=== PATIENT | female | born 1965 | race Caucasian/White ===

== ENCOUNTER → 2020-09-03 11:08 | Outpatient (BNVA) | payer OTHER, SELFPAY | PROVIDERS: PCP Physician Assistant Medical; Referring Provider Physician Assistant Medical; Visit Provider Surgery | DX: Z76.89 Persons encountering health services in other specified circumstances (principal) ==

== ENCOUNTER 2020-09-10 08:27 | Outpatient (REF) | payer OTHER, SELFPAY ==
[2020-09-11 14:42] LABS: H Pylori Breath Test NOT DETECTED (NOT DETECTED)
== END 2020-09-10 08:28 | disposition home or self-care (01) ==
LOC: HO.LNP 08:27
PROVIDERS: PCP Physician Assistant Medical; Referring Provider Physician Assistant Medical; Visit Provider Physician Assistant
DX: Z01.818 Encounter for other preprocedural examination (principal)
CPT/HCPCS: 83013

== ENCOUNTER → 2020-09-11 12:01 | Outpatient (BNVA) | payer OTHER, SELFPAY | PROVIDERS: PCP Physician Assistant Medical; Referring Provider Physician Assistant Medical; Visit Provider Dietitian, Registered | DX: Z76.89 Persons encountering health services in other specified circumstances (principal) ==

== ENCOUNTER → 2020-09-18 08:12 | Outpatient (BNVA) | payer OTHER, SELFPAY | PROVIDERS: PCP Physician Assistant Medical; Visit Provider Surgery | DX: Z76.89 Persons encountering health services in other specified circumstances (principal) ==

== ENCOUNTER 2020-09-19 08:00 | Outpatient (REF) | payer OTHER, SELFPAY ==
--- NOTE | 2020-09-19 08:09 | US_ITS ---
EXAMINATION: US COMPLETE ABDOMEN WITH LIVER ELASTOGRAPHY CLINICAL INFORMATION: Morbid obesity. COMPARISON: None. TECHNIQUE: Real-time imaging of the abdominal viscera. Noninvasive ultrasound liver fibrosis assessment is performed using Ana ElastPQ point quantification shear wave elastography (pSWE) with a 5 MHz transducer. Multiple elastography samples are obtained. FINDINGS: PANCREAS: Normal. The visualized pancreatic head and body are normal in appearance. The remainder of the pancreas is obscured from visualization by the overlying bowel gas. ABDOMINAL AORTA: The proximal, middle, and distal aortic segments are normal in caliber. INFERIOR VENA CAVA: Visualized portions are normal. LIVER: The liver echotexture is coarse and the liver is echogenic. The right lobe measures 21 cm in length. The left lobe measures 14 cm in length. The portal vein demonstrates appropriate, hepatopedal flow. Shear wave elastography provides a median stiffness of 1.26 m/s (reference: normal median stiffness is 0.81 - 1.22 m/s). The IQR/median stiffness to assess sampling precision is 0.23 (reference: optimal IQR/median stiffness is under 0.3). GALLBLADDER: Surgically absent. COMMON BILE DUCT: Normal in caliber measuring 0.7 cm in diameter. RIGHT KIDNEY: Normal. No hydronephrosis. No renal calculi or focal parenchymal lesions. The kidney measures 12.4 cm in maximum dimension. LEFT KIDNEY: Normal. No hydronephrosis. No renal calculi or focal parenchymal lesions. The kidney measures 12.8 cm in maximum dimension. SPLEEN: Normal. The spleen measures 9.1 cm in maximum dimension. FREE FLUID: None. US/US abdomen comp w elastography IMPRESSION: 1. Enlarged, echogenic liver consistent with hepatic steatosis. 2. Elastography: 1.26 m/s (normal to mild)
--- NOTE | 2020-09-19 09:07 | XR_ITS ---
EXAMINATION: XR CHEST CLINICAL INFORMATION: Morbid obesity. COMPARISON: None TECHNIQUE: 2 views of the chest were obtained. FINDINGS: The cardiomediastinal and hilar contours are within normal limits. The lungs are clear without focal consolidation, pleural effusion or pneumothorax. XR/XR chest 2V IMPRESSION: No acute process identified.
--- NOTE | 2020-09-19 09:07 | FL_ITS ---
EXAMINATION: XR GI SERIES CLINICAL INFORMATION: Morbid obesity due to excess calories COMPARISON: None TECHNIQUE: Fluoroscopic assessment of the upper GI tract was performed in various upright and supine/prone obliquities utilizing thin and thick high density barium contrast material and effervescent granules. FINDINGS: The esophagus was normal in course, caliber, and contour. There was normal distensibility with no fixed segment of narrowing. No focal mucosal abnormality was identified. Mild esophageal dysmotility was observed. Contrast passed freely across the gastroesophageal junction into the stomach. No significant hiatal hernia. There was normal distensibility of the stomach with no focal abnormality identified. There was prompt gastric emptying into the duodenum which demonstrated a normal appearance. No gastroesophageal reflux was observed. FLUOROSCOPY TIME: 1.9 minutes DOSE AREA PRODUCT: 34.515 Gy-cm2 (rdz-centimeter squared) FL/FL upper GI series IMPRESSION: Mild esophageal dysmotility noted. Otherwise unremarkable upper GI examination.
== END 2020-09-19 08:01 | disposition home or self-care (01) ==
LOC: HO.US 08:00
PROVIDERS: Visit Provider Surgery
DX: Z01.818 Encounter for other preprocedural examination (principal); E66.01 Morbid (severe) obesity due to excess calories; K21.9 Gastro-esophageal reflux disease without esophagitis
CPT/HCPCS: 71046; 74240; 76705; 76981

== ENCOUNTER → 2020-10-11 08:10 | Outpatient (BNVA) | payer OTHER, SELFPAY | PROVIDERS: PCP Physician Assistant Medical; Referring Provider Physician Assistant Medical; Visit Provider Surgery | DX: Z76.89 Persons encountering health services in other specified circumstances (principal) ==

== ENCOUNTER → 2020-10-15 11:19 | Outpatient (REF) | payer OTHER, SELFPAY ==
--- NOTE | 2020-10-15 11:30 | CA_ITS ---
Transthoracic Echocardiogram Patient (Last, First, Middle): Alyssa Carrizales, Gender: Female Date of : 1965 Age: 54 Procedure Date: 10/15/2020 Procedure Type: Transthoracic Echocardiogram Location: OP Height: 160.02 cm Weight: 97.98 kg BSA: 2.00 m2 Heart Rate: bpm BP: 142 / 76 mmHg Power Distribution Engineer: VANESSA Referring MD: Ernie Fonseca MD Symptoms: I10 HTN PREOP CV EXAM Z01.818 Study Quality: Good ECG Rhythm: Sinus Conclusions: - The left ventricular systolic function is normal. The visually estimated ejection fraction is between 60-65%. - There is an interatrial septal aneurysm seen bowing to the right. Interatrial shunt cannot be excluded. - No obvious valvular pathology seen on this study. - Recommend contrast study (bubble study) to evaluate intracardiac shunting. Findings Left Ventricle Normal left ventricular cavity size. There is normal left ventricular wall thickness. The left ventricular systolic function is normal. The visually estimated ejection fraction is between 60-65%. There is no evidence of regional wall motion abnormalities. Diastolic function is normal for age. Right Ventricle Normal right ventricular cavity size and systolic function. Atria The left atrium is normal in size. There is an interatrial septal aneurysm seen bowing to the right. Interatrial shunt cannot be excluded. The right atrium is normal in size. Aortic Valve There is a normal trileaflet aortic valve. There is no aortic valve stenosis. There is no aortic valve regurgitation. Mitral Valve The mitral valve appears normal. There is trace mitral valve regurgitation. There is no mitral valve stenosis. Pulmonic Valve The pulmonic valve was not well visualized. Tricuspid Valve Normal tricuspid valve structure. There is trace tricuspid valve regurgitation. The pulmonary artery systolic pressure is normal. Great Vessels The aortic annulus, sinuses of valsalva, and asc aorta are normal in size. Venous The inferior vena cava is normal in size and collapses greater than 50% with inspiration. Pericardium/Pleural There is no evidence of pericardial effusion. Prior Study Comparison No prior study available for comparison. Recommendations, Care & Conclusions No obvious valvular pathology seen on this study. Recommend contrast study to evaluate intracardiac shunting. Measurements 2D Linear Measurements IVSd: 0.97 0.6-0.9/0.6-1.0 cm LVIDd: 4.81 3.9-5.3/4.2-5.9 cm LVIDd Index: 2.41 2.4-3.2/2.2-3.1 cm/m2 LVIDs: 3.00 2.0-3.6 cm LVPWd: 1.15 0.7-1.1 cm Ao Root: 2.80 2.1-3.5 cm LA Diam: 3.70 2.7-3.8/3.0-4.0 cm LAIDs Index: 1.85 1.5-2.3 cm/m2 LV Mass: 230.39 67-162/88-224 g LV Mass Index: 115.19 43-95/49-115 g/m2 LVOT Diam: 2.00 3.0+(-)1.3 cm 2D Systolic Function EF 4C: 63.50 >55% EF 2C: 69.70 >55% EF BiP: 66.40 >55% Mitral Valve MV Pk E: 0.90 MV PK A: 0.81 MV Decel Time: 198.00 E/A: 1.10 E'Lateral: 8.80 E'Medial: 6.67 E/E' Med: 13.40 E/E' Lat: 10.20 PHT: 58.00 MVA PHT: 3.79 Decel [place]: 4.53 Aortic Valve AoV Pk Nik: 1.49 AoV Pk Grad: 9.00 LVOT LVOT Pk Nik: 0.98 LVOT Mn Nik: 0.66 LVOT VTI: 0.22 LVOT Pk Grad: 4.00 LVOT Mn Grad: 2.00 LVOT Diam: 2.00 LVOT Area: 3.14 Diastolic Function MV Pk E: 0.90 MV Pk A: 0.81 E/A: 1.10 E'Medial: 6.67 E/E' Med: 13.40 E' Laterial: 8.80 E/E' Lat: 10.20 Tricuspid Valve TR Pk Nik: 2.29 TR Pk Grad: 21.00 RA Press: 3.00 RVSP: 24.00 Great Vessels Aorta Ao Root-2D: 2.80 2.0-3.7 cm Ao Asc: 3.40 2.1-3.4 cm Updated in Other Vendor System with Status of Final Kenneth Fierro MD electronically signed on 10/15/2020 4:37:55 PM with status of Final
== END ==
LOC: HO.CARD 11:19
PROVIDERS: Visit Provider Surgery
DX: Z01.818 Encounter for other preprocedural examination (principal); I10 Essential (primary) hypertension
CPT/HCPCS: 93306

== ENCOUNTER → 2020-10-17 09:29 | Outpatient (BNVA) | payer OTHER, SELFPAY | PROVIDERS: PCP Physician Assistant Medical; Visit Provider Dietitian, Registered | DX: Z76.89 Persons encountering health services in other specified circumstances (principal) ==

== ENCOUNTER → 2020-10-28 09:02 | Outpatient (BNVA) | payer OTHER, SELFPAY | PROVIDERS: PCP Physician Assistant Medical; Visit Provider Surgery | DX: Z76.89 Persons encountering health services in other specified circumstances (principal) ==

== ENCOUNTER → 2020-11-20 15:31 | Outpatient (BNVA) | payer OTHER, SELFPAY | PROVIDERS: PCP Physician Assistant Medical; Visit Provider Physician Assistant ==

== ENCOUNTER → 2020-11-22 08:14 | Outpatient (BNVA) | payer OTHER, SELFPAY | PROVIDERS: PCP Physician Assistant Medical; Visit Provider Surgery ==

== ENCOUNTER → 2020-12-20 08:22 | Outpatient (BNVA) | payer OTHER, SELFPAY | PROVIDERS: PCP Physician Assistant Medical; Visit Provider Surgery ==

== ENCOUNTER → 2021-01-08 08:39 | Outpatient (BNVA) | payer OTHER, SELFPAY | PROVIDERS: PCP Physician Assistant Medical; Visit Provider Surgery ==

== ENCOUNTER 2024-06-15 08:13 | Outpatient (REF) | payer OTHER, MEDICAID, SELFPAY ==
--- NOTE | ~2024-06-15 | XR_ITS ---
EXAMINATION: XR PELVIS CLINICAL INFORMATION: Pain in unspecified hip. COMPARISON: None available. TECHNIQUE: AP view of the pelvis. Limited visualization due to bowel gas and body habitus. FINDINGS: Dextroscoliosis of the imaged [id number] lumbar spine with degenerative changes. Mild degenerative changes in the bilateral hips. XR/XR pelvis 1-2V IMPRESSION: 1. Mild degenerative changes in the bilateral hips. 2. Dextroscoliosis of the imaged [id number] lumbar spine with degenerative changes. Electronically signed by: Radha Park MD 07/12/2024 10:38 AM EDT
--- NOTE | ~2024-06-15 | XR_ITS ---
EXAMINATION: XR KNEE, RIGHT XR KNEE AP STANDING CLINICAL INFORMATION: Right knee pain. COMPARISON: Portions of the CT right knee dated 07/20/2021. TECHNIQUE: Lateral and axial views of the right knee are submitted. AP bilateral standing view of the knees was obtained. FINDINGS: Prosthetic components of the bilateral total knee arthroplasties are appropriately aligned without periprosthetic fracture or abnormal lucency. No component migration. No joint effusion. XR/XR knee RT 3V IMPRESSION: Appropriate alignment of the bilateral total knee arthroplasties, without evidence of complications. Electronically signed by: Efrain Meyer MD 07/12/2024 07:49 PM EDT
== END 2024-06-15 08:14 | disposition home or self-care (01) ==
LOC: HO.HOSX 08:13
PROVIDERS: Visit Provider Orthopaedic Surgery
DX: M25.561 Pain in right knee (principal); M25.559 Pain in unspecified hip; Z96.653 Presence of artificial knee joint, bilateral
CPT/HCPCS: 72170; 73562

== ENCOUNTER 2024-06-15 10:40 | Outpatient (AMB) | payer OTHER, MEDICAID, SELFPAY ==
--- NOTE | 2024-06-15 11:16 | A.OFFVIS_ITS ---
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 Patient reports that she had a Right TKA done in [address] [facility] after surgery she explains that she had two aspirations to check for infection. No infections were found. She has had pain since the surgery, increased pain when climbing stairs, prolonged standing and walking as well as with gait initiation. In the first month of post operative period, she was working with PT when the therapist lifted and twisted her knee and caused the increase of pain. There was a CT scan done that was reviewed with her by a PA who let her know that she had a femur fracture but when she followed up with the MD she was told that it was just a shadow from her prosthesis [facility] Medical History (Updated 10/11/20 @ 12:33 by Ernie Fonseca MD) Knee pain Prediabetes Stress headaches Anxiety Depression Asthma Hypertension Sleep apnea with use of continuous positive airway pressure (CPAP) Morbid obesity Surgical History (Updated 06/15/24 @ 11:53 by Jamir Olguin MD) Obesity Hx of hysterectomy H/O bilateral breast reduction surgery Hx laparoscopic cholecystectomy S/P bilateral foot surgery Family History Father Lymphoma DM (diabetes mellitus) HTN (hypertension) Stroke Mother HTN (hypertension) DM (diabetes mellitus) Colon cancer Brother Heart attack Brother HTN (hypertension) Brother No problems noted. Brother No problems noted. Brother No problems noted. Sister No problems noted. Sister No problems noted. Daughter Obesity Daughter No problems noted. Social History Alcohol intake: never Cigarettes Per Day: 6 Physical Exam Extrem Other: Anterolateral tibial tenderness to palpation with trace effusion. Incision is clean dry and intact. 0-110 degrees of motion Results Reviewed Results Reviewed: Right TKA in expected post operative position with no hardware complications or evidence of loosening Assessment & Plan Assessment & Plan (1) S/P knee replacement: Code(s): Z96.659 - Presence of unspecified artificial knee joint Category: Surgical Plan: Alyssa is status post right knee replacement. There is some mild radiographic abnormalities over the anterolateral tibia. This does correspond to her tenderness. Her ESR and CRP are within normal limits and I think the risk of infection is extremely low. I ordered a bone scan to assess for activity around the tibial prosthesis. Orders: Orders XR knee RT 3V 06/15/24 M25.561 - Pain in right knee XR pelvis 1-2V 06/15/24 M25.559 - Pain in unspecified hip Erythrocyte Sedimentation Rate 06/15/24 Z96.659 - Presence of unspecified artificial knee joint C Reactive Protein 06/15/24 Z96.659 - Presence of unspecified artificial knee joint NM bone 3 phase Today Z96.659 - Presence of unspecified artificial knee joint Coding Level of Care Code New Pt Level 4 (06824) Diagnoses S/P knee replacement Z96.659
== END 2024-06-15 12:06 | disposition home or self-care (01) ==
PROVIDERS: PCP Physician Assistant Medical; Visit Provider Orthopaedic Surgery
DX: M25.461 Effusion, right knee (principal); Z96.651 Presence of right artificial knee joint
CPT/HCPCS: 99203

== ENCOUNTER 2024-06-15 12:31 | Outpatient (REF) | payer OTHER, MEDICAID, SELFPAY ==
[2024-06-15 14:03] LABS: Erythrocyte Sedimentation Rate 19 MM/HR (0-20)
== END 2024-06-15 12:32 | disposition home or self-care (01) ==
LOC: HO.10HDL 12:31
PROVIDERS: Visit Provider Orthopaedic Surgery
DX: Z96.659 Presence of unspecified artificial knee joint (principal)
CPT/HCPCS: 36415; 85652; 86140

== ENCOUNTER → 2024-08-02 09:37 | Outpatient (REF) | payer MEDICARE, MEDICAID, SELFPAY ==
--- NOTE | ~2024-08-02 | NM_ITS ---
EXAMINATION: THREE PHASE BONE SCAN CLINICAL INFORMATION: Presence of unspecified artificial knee joint.. COMPARISON: No previous bone scan is available for comparison. Radiographs of the pelvis and right knee dated 06/15/2024 are available for comparison.. TECHNIQUE: Initial rapid sequence images were obtained over the knees in the anterior and posterior projections during the bolus injection of 38 mCi Tc-99m MDP. Static images of the lower lumbar spine to the mid tibias in multiple projections were then obtained 3 hours post injection. FINDINGS: Initial rapid sequence images show bilaterally symmetrical flow to the knees with no foci of abnormally increased flow present at any site. The visualized vascular flow appears bilaterally symmetrical.. Blood pool images obtained immediately finding the flow study show no suspicious foci of abnormally increased blood pool activity at any site. Photopenic defects in bilateral total knee prostheses are noted. The delayed static images also show the photopenic defects from bilateral total knee prostheses. There is a very mild diffuse increase in activity adjacent to the right knee hardware. This is slightly more intense in the right patella, but still mild in intensity. There are no additional foci of more intensely increased activity. In the other visualized bones there is a focus of mildly increased activity in the right side of L5, posteriorly, probably due to facet arthropathy. NM/NM bone 3 phase IMPRESSION: Well-healed bilateral total knee prostheses are noted. The minimally more intense activity adjacent to the right-sided hardware is probably due to its more recent placement. There are no abnormalities present strongly suspicious for prosthetic loosening, infection, or adjacent fracture.. Electronically signed by: Juancho Porras MD 08/03/2024 11:25 AM EDT
== END ==
LOC: HO.NUCMED 09:37
PROVIDERS: Visit Provider Orthopaedic Surgery
DX: Z96.653 Presence of artificial knee joint, bilateral (principal)
CPT/HCPCS: 78315; A9503

== ENCOUNTER 2024-08-07 09:08 | Outpatient (AMB) | payer OTHER, MEDICARE, MEDICAID, SELFPAY ==
--- NOTE | 2024-08-07 09:18 | A.OFFVIS_ITS ---
Intake Visit Reasons: OV-NM Whole Body Bone Scan-Follow up Intake Note: Alyssa is a 58 year old female who presents today for a follow up of her bone scan. History of Right TKA done in 2021 at [facility]. Bone scan was ordered to assess for activity around the tibial prosthesis NM/NM bone 3 phase IMPRESSION: Well-healed bilateral total knee prostheses are noted. The minimally more intense activity adjacent to the right-sided hardware is probably due to its more recent placement. There are no abnormalities present strongly suspicious for prosthetic loosening, infection, or adjacent fracture.. Allergies bee pollen Allergy (Severe, Verified 06/15/24 11:22) Anaphylaxis morphine Allergy (Severe, Verified 09/03/20 11:31) Anaphylaxis cefprozil [From Cefzil] Allergy (Mild, Verified 09/03/20 11:31) Rash chlorhexidine Allergy (Mild, Verified 09/03/20 11:31) Rash Iv Dye Allergy (Uncoded 06/15/24 11:22) stops breathing tramadol Adverse Reaction (Uncoded 06/15/24 11:22) Unknown HPI HPI OV-NM Whole Body Bone Scan-Follow up: Details: Alyssa is a 58 year old female who presents today for a follow up of her bone scan. History of Right TKA done in 2021 at [facility]. Bone scan was ordered to assess for activity around the tibial prosthesis. She continues to have pain over the tibia both medially and laterally. She denies fevers and chills. Nothing has changed since I saw her last other than she has had some hardware removed from her foot. [facility] Medical History (Updated 10/11/20 @ 12:33 by Ernie Fonseca MD) Knee pain Prediabetes Stress headaches Anxiety Depression Asthma Hypertension Sleep apnea with use of continuous positive airway pressure (CPAP) Morbid obesity Surgical History (Updated 06/15/24 @ 11:53 by Jamir Olguin MD) Obesity Hx of hysterectomy H/O bilateral breast reduction surgery Hx laparoscopic cholecystectomy S/P bilateral foot surgery Family History Father Lymphoma DM (diabetes mellitus) HTN (hypertension) Stroke Mother HTN (hypertension) DM (diabetes mellitus) Colon cancer Brother Heart attack Brother HTN (hypertension) Brother No problems noted. Brother No problems noted. Brother No problems noted. Sister No problems noted. Sister No problems noted. Daughter Obesity Daughter No problems noted. Social History Alcohol intake: never Cigarettes Per Day: 6 Physical Exam Extrem Other: Anterolateral tibial tenderness to palpation with trace effusion. Incision is clean dry and intact. 0-110 degrees of motion Results Reviewed Results Reviewed: NM/NM bone 3 phase IMPRESSION: Well-healed bilateral total knee prostheses are noted. The minimally more intense activity adjacent to the right-sided hardware is probably due to its more recent placement. There are no abnormalities present strongly suspicious for prosthetic loosening, infection, or adjacent fracture. Assessment & Plan Assessment & Plan (1) S/P knee replacement: Code(s): Z96.659 - Presence of unspecified artificial knee joint Category: Surgical Plan: Alyssa has about 2 and half years status post right knee replacement. The radiographs and bone scan and labs all are within normal limits. I do not suspect infection or loosening. I discussed this with her. My recommendation would be that she see the pain management doctors for consideration of periarticular injections and/or nerve stimulators if her pain persists. She would like that referral in it was made. She can use me as a resource and follow up as needed. Orders: Referrals Pain Management Referral Z96.659 - Presence of unspecified artificial knee joint Coding Level of Care Code Est Pt Level 4 (81272) Diagnoses S/P knee replacement Z96.659
== END 2024-08-07 09:39 | disposition home or self-care (01) ==
PROVIDERS: PCP Physician Assistant Medical; Visit Provider Orthopaedic Surgery
DX: M25.561 Pain in right knee (principal); Z96.653 Presence of artificial knee joint, bilateral
CPT/HCPCS: 99214

== ENCOUNTER → 2024-08-07 09:08 | Outpatient (BNVA) | payer MEDICAID, SELFPAY | PROVIDERS: PCP Physician Assistant Medical; Visit Provider Orthopaedic Surgery | DX: Z96.653 Presence of artificial knee joint, bilateral (principal) | CPT/HCPCS: 99212 ==

== ENCOUNTER 2024-09-08 08:52 | Outpatient (AMB) | payer MEDICARE, MEDICAID, SELFPAY ==
--- NOTE | 2024-09-08 08:57 | MHC.OFFVIS ---
Vital Signs 09/08/24 09:01 Height 5 ft 3 in Weight 228 lb BMI 40.4 BP 150/87 H Blood Pressure Location Lt brachial Position Sitting Pulse 89 Pulse Source Pulse Oximeter Pulse Oximetry (%) 97 Oxygen Delivery Method Room Air Intake Visit Reasons: Presence of Artificial Knee Joint Intake Note: Pain today 04/10 Scudding Inspector Required: No Accompanied by: Self / Same As Patient Allergies bee pollen Allergy (Severe, Verified 09/08/24 08:59) Anaphylaxis morphine Allergy (Severe, Verified 09/08/24 08:59) Anaphylaxis cefprozil [From Cefzil] Allergy (Mild, Verified 09/08/24 08:59) Rash chlorhexidine Allergy (Mild, Verified 09/08/24 08:59) Rash Iv Dye Allergy (Uncoded 06/15/24 11:22) stops breathing tramadol Adverse Reaction (Uncoded 06/15/24 11:22) Unknown HPI HPI Presence of Artificial Knee Joint: Details: Patient is a pleasant 58-year-old female with prior history of chronic heel pain, bilateral TKA (right 2020, left 2018 [facility], Dr. Murdock), bilateral foot reconstruction, status post right ankle painful hardware removal on 07/08/24, prediabetes, depression, presents today for initial evaluation of right knee pain. She was referred to us by Dr. Olguin for potential interventional treatments for chronic right knee pain. Denies any recent trauma, injury, or falls. Patient reports sudden onset of right knee pain on the 3rd day postop during bending exercise by PT. Since then, she had multiple Orthopedic visits for right knee effusion drainage and imaging. More recently, she was seen by Dr. Olguin and underwent xray and whole bone scan which all were within normal limits, no signs of infection or hardware loosening. Right knee pain is localized to lateral and anterior aspects of the knee with aching, stabbing, and burning sensations with activities and rest. She has tried opioids which she did not tolerate well and had anaphylactic reaction with morphine, also tried pregabalin, Tylenol, NSAIDs, topical applications, heat and ice therapy, and completed formal course of PT and home exercise program. She also reports left knee pain due to over compensation after recent right ankle surgery. Reports previous cortisone injections raised her blood sugars significantly. Pain affects her daily activities and functioning, mood, sleep, mobility, social interactions and quality of life. 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 Reports mild benefit with duloxetine. Reports marijuana vape for sleep and pain with partial relief. Location: Bilateral knee, right worse than left Duration: Chronic pain for 2-3 years s/p right TKA Characteristics of symptom or complaint: Aching, stabbing, sharp, shooting, burning Aggravating or associated factors: Cold weather, movement, climbing stairs Relieving factors: Opioids (allergic), diclofenac gel, lidocaine, heat/cold, Tylenol, NSAIDs Treatment: [place] [facility] [place], right TKA 2020, left TKA [address] [facility] Dr. Murdock [facility] Medical History Knee pain Prediabetes Stress headaches Anxiety Depression Asthma Hypertension Sleep apnea with use of continuous positive airway pressure (CPAP) Morbid obesity Surgical History Obesity Hx of hysterectomy H/O bilateral breast reduction surgery Hx laparoscopic cholecystectomy S/P bilateral foot surgery Family History Father Lymphoma DM (diabetes mellitus) HTN (hypertension) Stroke Mother HTN (hypertension) DM (diabetes mellitus) Colon cancer Brother Heart attack Brother HTN (hypertension) Brother No problems noted. Brother No problems noted. Brother No problems noted. Sister No problems noted. Sister No problems noted. Daughter Obesity Daughter No problems noted. Other Knee pain Social History Alcohol intake: current Alcohol intake frequency: holidays/special occasions only Patient Tobacco Use Status: Current everyday Tobacco user Tobacco use type: Cigarette Cigarettes Per Day: 6 Substance Use Type: Marijuana Review of Systems Const All systems reviewed & are unremarkable except as noted in HPI and below Physical Exam Vital Signs: Last Vital Signs Pulse 89 09/08/24 09:01 BP 150/87 H 09/08/24 09:01 Pulse Ox 97 09/08/24 09:01 Oxygen Delivery Method Room Air 09/08/24 09:01 BMI result Body Mass Index 40.4 General: Appears afebrile. Alert and oriented. Mood and affect appropriate. Follows and participates in conversation appropriately. Respiratory effort is unlabored. No cough. Able to transition from sit to stand unassisted. Ambulates with bilaterally normal heel strike and toe off, mild limping. Extrem General: Yes capillary refill normal, Yes no clubbing, cyanosis or edema and Yes no calf tenderness Right lower extremity: knee (Well healed incision. Limited ROM due to pain.) Details: normal to inspection, tenderness (anterior knee) Location: of the lateral joint line and crepitus; no swelling, no ecchymosis, no deformity and no unusual warmth Results Reviewed Results Reviewed: THREE PHASE BONE SCAN 08/02/24 CLINICAL INFORMATION: Presence of unspecified artificial knee joint.. COMPARISON: No previous bone scan is available for comparison. Radiographs of the pelvis and right knee dated 06/15/2024 are available for comparison.. TECHNIQUE: Initial rapid sequence images were obtained over the knees in the anterior and posterior projections during the bolus injection of 38 mCi Tc-99m MDP. Static images of the lower lumbar spine to the mid tibias in multiple projections were then obtained 3 hours post injection. FINDINGS: Initial rapid sequence images show bilaterally symmetrical flow to the knees with no foci of abnormally increased flow present at any site. The visualized vascular flow appears bilaterally symmetrical.. Blood pool images obtained immediately finding the flow study show no suspicious foci of abnormally increased blood pool activity at any site. Photopenic defects in bilateral total knee prostheses are noted. The delayed static images also show the photopenic defects from bilateral total knee prostheses. There is a very mild diffuse increase in activity adjacent to the right knee hardware. This is slightly more intense in the right patella, but still mild in intensity. There are no additional foci of more intensely increased activity. In the other visualized bones there is a focus of mildly increased activity in the right side of L5, posteriorly, probably due to facet arthropathy. IMPRESSION: Well-healed bilateral total knee prostheses are noted. The minimally more intense activity adjacent to the right-sided hardware is probably due to its more recent placement. There are no abnormalities present strongly suspicious for prosthetic loosening, infection, or adjacent fracture.. Assessment & Plan Assessment & Plan (1) Right knee pain: Code(s): M25.561 - Pain in right knee Category: Medical (2) History of total right knee replacement: Code(s): Z96.651 - Presence of right artificial knee joint Category: Surgical Plan Discussed genicular nerve blocks for consideration of genicular RFA, femoral nerve block for potential Sprint PNS trial vs longer term Curonix PNS trial vs implant and therapeutic injections. Expectations, risks and benefits were reviewed. Informational pamphlets provided to patient today. Patient would like to discuss this procedures with her family and will notify our office on her decision. Script provided for pregabalin refill. Side effects and precautions were reviewed with patient. All questions and concerns have been answered and patient agreed with the treatment plan. Follow-up as needed. Medications: Changed From pregabalin 50 mg PO BID M25.561 - Pain in right knee, Z96.651 - Presence of right artificial knee joint To pregabalin 50 mg PO BID 30 days 60 caps 0RF pain M25.561 - Pain in right knee, Z96.651 - Presence of right artificial knee joint Coding Level of Care Code New Pt Level 4 (41301) Complex EM visit Add On G2211 Diagnoses Right knee pain M25.561 History of total right knee replacement Z96.651
[2024-09-08 09:01] VITALS: BP 150/87; PULSE 89; O2SAT 97; BMI 40.4
== END 2024-09-08 09:50 | disposition home or self-care (01) ==
PROVIDERS: PCP Physician Assistant Medical; Referring Provider Orthopaedic Surgery; Visit Provider Nurse Practitioner Family
DX: M25.561 Pain in right knee (principal); Z96.651 Presence of right artificial knee joint
CPT/HCPCS: 99204; G2211

== ENCOUNTER → 2024-09-08 08:52 | Outpatient (BNVA) | payer MEDICARE, MEDICAID, SELFPAY | PROVIDERS: PCP Physician Assistant Medical; Referring Provider Orthopaedic Surgery; Visit Provider Nurse Practitioner Family | DX: M25.561 Pain in right knee (principal); Z96.651 Presence of right artificial knee joint | CPT/HCPCS: 99202 ==

== ENCOUNTER 2024-11-28 06:12 | Outpatient (REF) | payer MEDICARE, MEDICAID, SELFPAY ==
--- OUTSIDE RECORDS SUMMARY | 2024-11-28 06:15 | XMS_ITS | Continuity of Care Document ---
Author Organization [facility] Address [address] [place] [address]- Care Team Providers Care Staff Engineer Name Role Phone Passer Amira RIZO Primary Care Physician Encounter [facility] [place] Date(s): 10/16/24 - 11/15/24 [facility] [address] [place] [address]- Attending Physician: Admtr, [id number] Encounter Type: Triage Allergies, Adverse Reactions, Alerts Substance Criticality Severity Reaction Reaction Severity Status morphine difficulty breathing,hives Active lisinopril cough & diarrhea Ac tive Keflex hives Active Cefzil hives Active Contrast Dye DIFF BREATHING Ac tive traMADol Active Percocet Bradycardia Syncope Active Bee Stings Anaphylaxis Active Chlorhexidine Gluconate rash Active Immunizations Given and Recorded Vaccine Date Status Refusal Reason RSV vaccine, preF A-preF B, recombinant 10/21/23 G iven influenza virus vaccine, inactivated 10/07/23 Give n influenza virus vaccine, inactivated 07/28/22 Give n influenza virus vaccine, inactivated 09/19/21 Lowell rded influenza virus vaccine, inactivated 09/02/21 [place] rded influenza virus vaccine, inactivated 08/20/20 [place] rded influenza virus vaccine, inactivated 08/08/18 [place] rded influenza virus vaccine, inactivated 09/28/17 [place] rded influenza virus vaccine, inactivated 1 07/30/14 Gi jaskaran influenza virus vaccine, inactivated 2 07/22/10 Gi jaskaran influenza virus vaccine, inactivated 08/04/03 Give n SARS-CoV-2 (COVID-19) mRNA-1273 vaccine 09/17/21 R ecorded SARS-CoV-2 (COVID-19) mRNA-1273 vaccine 12/02/20 R ecorded SARS-CoV-2 (COVID-19) mRNA-1273 vaccine 11/28/20 R ecorded SARS-CoV-2 (COVID-19) mRNA-1273 vaccine 10/31/20 R ecorded tetanus/diphtheria/pertussis, acel(Tdap) 06/26/20 Given tetanus/diphtheria/pertussis, acel(Tdap) 12/22/17 Recorded tetanus/diphtheria/pertussis, acel(Tdap) 3 06/17/10 Given pneumococcal 23-valent vaccine 10/03/13 Given tetanus-diphtheria toxoids (Td) 11/07/04 Given 1Result Comment: [07/30/2014] ORDERED BY HORACIO PINTO MD 2Admin Note: flu vaccine sanofi-pasteur VIS 04/2009 3Admin Note: VIS 05/12/06 Adacel Medications acetaminophen 650 mg oral tablet, extended release 2 tablet = 1,300 mg, By Mouth, Every 8 hours, PRN as needed for pain, ok to alternate with nabumetone. not to exceed 6 tablets/day, # 50 tablet, 1 Refills, Maintenance, 11/19/23 2:13:00 PM EST, ER Tablet, [facility], Partial fill upon patient request if the prescription is for a schedule II opioid drug., 160, cm, 11/19/23 13:14:00 EST, Height, 110.2, kg, 11/12/23 10:45:00 EST, Dry Weight Start Date: 11/19/23 Status: Ordered Quantity: 50.0 Unit: tablet Repeat number: 2 Albuterol (Eqv-ProAir HFA) 90 mcg/inh inhalation aerosol See Instructions, USAR 2 INHALACIONES CADA 4 HORAS CUANDO SEA NECESARIO PARA JOESPH, # 8.5 Gm, 11 Refills, Maintenance, 09/27/24 11:43:00 AM EST, [facility], 17, USAR 2 INHALACIONES CADA 4 HORAS CUANDO SEA NECESARIO PARA JOESPH, 160, cm, 07/24/24 9:35:00 EDT, Height, 105.363, kg, 07/05/24 18:00:00 EDT, Dry Weight Start Date: 09/27/24 Status: Ordered Quantity: 8.5 Unit: g Repeat number: 1 atorvastatin 40 mg oral tablet 1 tablet = 40 mg, By Mouth, Daily, for cholesterol, # 90 tablet, 1 Refills, Maintenance, 10/16/24 8:59:00 AM EST, Tablet, [facility], Partial fill upon patient request if the prescription is for a schedule II opioid drug., 160, cm, 10/16/24 8:27:00 EST, Height, 105.363, kg, 07/05/24 18:00:00 EDT, Dry Weight Start Date: 10/16/24 Status: Ordered Quantity: 90.0 Unit: tablet Repeat number: 2 Colace Capsule 100 mg, 1, capsule, By Mouth, 2 times a day, hold for loose stool, Refills 0, Maintenance, 01/14/22 8:09:00 AM EDT, Partial fill upon patient request if the prescription is for a schedule II opioid drug. Start Date: 01/14/22 Status: Ordered Repeat number: 1 cyclobenzaprine 10 mg oral tablet 10 mg, 1, tablet, By Mouth, 3 times a day, FOR MUSCLE PAIN, # 90 tablet, Refills 1, Tot. Refills 1,Maintenance, 02/10/23 5:14:00 PM EDT, Route to Pharmacy Electronically, [facility], Partial fill upon patient request if the prescription is for a schedule II opioid drug., 160, cm, 02/10/23 16:38:00 EDT, Height, 113.18, kg, 02/10/23 16:38:00 EDT, Dry Weight Start Date: 02/10/23 Status: Ordered Quantity: 90.0 Unit: tablet Repeat number: 2 duloxetine 60 mg oral enteric coated capsule 1 capsule = 60 mg, By Mouth, Daily, for depression dosage adjustment, # 90 capsule, 0 Refills, Maintenance, 04/03/24 9:31:00 AM EDT, EC Capsule, [facility], Partial fill upon patient request if the prescription is for a schedule II opioid drug., 160, cm, 04/03/24 9:07:00 EDT, Height, 111.81, kg, 02/07/24 9:04:00 EDT, Dry Weight Start Date: 04/03/24 Status: Ordered Quantity: 90.0 Unit: capsule Repeat number: 1 EPINEPHrine 0.3 mg injectable solution See Instructions, INYECTAR INTRAMUSCULAR PARA REACIONES ALERGICAS, SIMIN [place] 911 PARA ATENCION MEDICA, # 2 Unknown, 1 Refills, Maintenance, 03/03/24 12:37:00 PM EDT, [facility], 160, cm, 02/07/24 9:04:00 EDT, Height, 111.81, kg, 02/07/24 9:04:00 EDT, Dry Weight Start Date: 03/03/24 Status: Ordered Quantity: 2.0 Unit: Unknown Repeat number: 1 hydrOXYzine hydrochloride 25 mg oral tablet 1 tablet = 25 mg, By Mouth, 4 times a day, PRN for anxiety, # 40 tablet, 2 Refills, Maintenance, 04/03/24 9:31:00 AM EDT, Tablet, [facility], Partial fill upon patient request if the prescription is for a schedule II opioid drug., 160, cm, 04/03/24 9:07:00 EDT, Height, 111.81, kg, 02/07/24 9:04:00 EDT, Dry Weight Start Date: 04/03/24 Status: Ordered Quantity: 40.0 Unit: tablet Repeat number: 3 losartan 100 mg oral tablet 1 tablet = 100 mg, By Mouth, Daily, for blood pressure dosage adjustment, # 90 tablet, 1 Refills, Maintenance, 10/16/24 8:58:00 AM EST, Tablet, [facility], Partial fill upon patient request if the prescription is for a schedule II opioid drug., 160, cm, 10/16/24 8:27:00 EST, Height, 105.363, kg, 07/05/24 18:00:00 EDT, Dry Weight Start Date: 10/16/24 Status: Ordered Quantity: 90.0 Unit: tablet Repeat number: 2 Lyrica 50 mg oral capsule 1 capsule = 50 mg, By Mouth, 2 times a day, for nerve pain, # 60 capsule, 2 Refills, Maintenance, 04/03/24 9:31:00 AM EDT, [facility], Partial fill upon patient request if the prescription is for a schedule II opioid drug., 160, cm, 04/03/24 9:07:00 EDT, Height, 111.81, kg, 02/07/24 9:04:00 EDT, Dry Weight Start Date: 04/03/24 Status: Ordered Quantity: 60.0 Unit: capsule Repeat number: 3 Mounjaro 5 mg/0.5 mL subcutaneous solution = 5 mg, Subcutaneous Injection, Every week, rotate injection sites for diabetes in place of Trulicity, # 4 each, 0 Refills, Maintenance, 10/16/24 8:58:00 AM EST, Solution, [facility], Partial fill upon patient request if the prescription is for a schedule II opioid drug., 160, cm, 10/16/24 8:27:00 EST, Height, 105.363, kg, 07/05/24 18:00:00 EDT, Dry Weight Start Date: 10/16/24 Status: Ordered Quantity: 4.0 Unit: each Repeat number: 1 oxyCODONE 5 mg oral tablet 5 mg, 1, tablet, By Mouth, Every 6 hours, PRN, # 30 tablet, Refills 0, Tot. Refills 0, Maintenance,as needed for pain, 10/16/24 8:59:00 AM EST, Route to Pharmacy Electronically, [facility], Partial fill upon patient request if the prescription is for a schedule II opioid drug., 160, cm, 10/16/24 8:27:00 EST, Height, 105.363, kg, 07/05/24 18:00:00 EDT, Dry Weight Start Date: 10/16/24 Status: Ordered Quantity: 30.0 Unit: tablet Repeat number: 1 pantoprazole 20 mg oral delayed release tablet 1 tablet, By Mouth, Daily, FOR REFLUX., # 90 tablet, 1 Refills, Maintenance, 06/22/24 4:44:00 PM EDT, 160, cm, 06/05/24 9:14:00 EDT, Height, 111.81, kg, 02/07/24 9:04:00 EDT, Dry Weight Start Date: 06/22/24 Status: Ordered Quantity: 90.0 Unit: tablet Repeat number: 1 senna 187 mg oral tablet 1 tablet = 8.6 mg, By Mouth, Daily at bedtime, PRN as needed for constipation, 0 Refills, Maintenance, 01/14/22 8:09:00 AM EDT, Tablet, Partial fill upon patient request if the prescription is for a schedule II opioid drug. Start Date: 01/14/22 Status: Ordered Repeat number: 1 Problem List Condition Confirmation Course Effective Dates Status H ealth Status Informant Anxiety depression Confirmed Active Asthma Confirmed Active Benign hypertension Confirmed 05/02/08 Active Binge Eating Disorder, mild, in partial remission Confirmed Active Cigarette smoker Confirmed Active Diabetes Confirmed Active Diabetes Confirmed Active Epidermal inclusion cyst/ruptured left breast Confirmed 12/07/14 Active Furunculosis of skin AND/OR subcutaneous tissue Confirmed 08/09/08 Active GERD (gastroesophageal reflux disease) Confirmed Active Headache Confirmed Active Pre-diabetes Confirmed Active Marsupialization of pilonidal cyst or sinus Confirmed Active Severe obesity (BMI >= 40) Confirmed Active Obesity, Class III, BMI 40-49.9 (morbid obesity) Confirmed Active Nasal polyp Confirmed 02/02/11 Active Obstructive sleep apnea Confirmed Active Chronic leg pain Confirmed Active Chronic pain of both knees Confirmed Active Severe obesity Confirmed Active Smoker Confirmed Active Social History Social History Type Response Smoking Status 5-9 cigarettes (betw een 1/4 to 1/2 pack)/day in last 30 days entered on: 03/11/21 Sex Sex Representation Female (finding) Laboratory * Event Display: Laboratory Result Scanned Authored Date: * Kathy Qiu: PERFORM Event Display: Laboratory Results Scanned Authored Date: [id number] Patient Care team information Care Team Personnel Name: Carito Navarro RN Position: S RN Member Role: Primary Care Nurse Name: Amira Casarez Position: [facility] Associate Professional Member Role: PCP Address: [address] [place] [address] Telecom: Care Team Related Persons Name: BETTY GOODSON Name: SELENE QIU Insurance Providers Guarantor name: ESTRADA GOODSON Health Plan Information #: 1 Payer: MEDICARE PART B OUTPT Member Number: NA Policy Number: NA Group Number: NA Health Plan Information #: 2 Payer: [place] Member Number: NA Policy Number: NA Group Number: NA
--- OUTSIDE RECORDS SUMMARY | 2024-11-28 06:15 | XMS_ITS | Continuity of Care Document ---
Author Organization [facility] Address [address] [place] [address]- Care Team Providers Care Aircraft Instrument Repairer Name Role Phone Amira Casarez Primary Care Physician [place] [facility] [place] 11/15/24 [facility] [address] [place] [address]- Attending Physician: Amira Casarez Admitting Physician: Amira Casarez Encounter Type: Pre-OutPatient One Time Allergies, Adverse Reactions, Alerts Substance Criticality Severity Reaction Reaction Severity Status morphine difficulty breathing,hives Active Keflex hives Active Cefzil hives Active traMADol Active lisinopril cough & diarrhea Ac tive Percocet Bradycardia Syncope Active Bee Stings Anaphylaxis Active Contrast Dye DIFF BREATHING Ac tive Chlorhexidine Gluconate rash Active Immunizations Given and [...] Maintenance, 11/19/23 2:13:00 PM EST, ER Tablet, [facility], Partial fill upon patient request [...] 11 Refills, Maintenance, 09/27/24 11:43:00 AM EST, [facility], 17, USAR 2 INHALACIONES CADA 4 [...] Refills, Maintenance, 10/16/24 8:59:00 AM EST, Tablet, [facility], Partial fill upon patient request [...] 5:14:00 PM EDT, Route to Pharmacy Electronically, [facility], Partial fill upon patient request if the [...] Maintenance, 04/03/24 9:31:00 AM EDT, EC Capsule, [facility], Partial fill upon patient request if the prescription is for a schedule II opioid drug., 160, cm, 04/03/24 9:07:00 EDT, Height, 111.81, kg, 02/07/24 9:04:00 EDT, Dry Weight Start Date: 04/03/24 Status: Ordered Quantity: 90.0 Unit: capsule Repeat number: 1 EPINEPHrine 0.3 mg injectable solution See Instructions, INYECTAR INTRAMUSCULAR PARA REACIONES ALERGICAS, SIMIN LORENZO 911 PARA ATENCION MEDICA, # 2 Unknown, 1 Refills, Maintenance, 03/03/24 12:37:00 PM EDT, [facility], 160, cm, 02/07/24 9:04:00 EDT, Height, 111.81, kg, 02/07/24 9:04:00 EDT, Dry Weight Start Date: 03/03/24 Status: Ordered Quantity: 2.0 Unit: Unknown Repeat number: 1 hydrOXYzine hydrochloride 25 mg oral tablet 1 tablet = 25 mg, By Mouth, 4 times a day, PRN for anxiety, # 40 tablet, 2 Refills, Maintenance, 04/03/24 9:31:00 AM EDT, Tablet, [facility], Partial fill upon patient request [...] Refills, Maintenance, 10/16/24 8:58:00 AM EST, Tablet, [facility], Partial fill upon patient request [...] 2 Refills, Maintenance, 04/03/24 9:31:00 AM EDT, [facility], Partial fill upon patient request [...] Refills, Maintenance, 10/16/24 8:58:00 AM EST, Solution, [facility], Partial fill upon patient request [...] 8:59:00 AM EST, Route to Pharmacy Electronically, [facility], Partial fill upon patient request [...] on: 03/11/21 Sex Sex Representation Female (finding) Patient Care team information Care Team Personnel Name: Carito Navarro RN Position: [facility] RN Member Role: Primary Care Nurse Name: Amira Casarez Position: [facility] PCO Associate Professional Member Role: PCP Address: [address] [place] [address] Telecom: Care Team Related Persons Name: BETTY GOODSON Name: SELENE BECERRA Insurance Providers Guarantor name: ESTRADA KELLEE Health Plan Information #: 1 Payer: MEDICARE PART B OUTPT Member Number: [id number] Policy Number: NA Group Number: NA Health Plan Information #: 2 [facility] Member Number: [id number] Policy Number: NA Group Number: NA
== END 2024-11-28 06:13 | disposition home or self-care (01) ==
LOC: CF 06:12
PROVIDERS: Visit Provider Anesthesiology
DX: M25.561 Pain in right knee (principal)
CPT/HCPCS: 64447; J2795

== ENCOUNTER 2024-11-28 09:28 | Outpatient (AMB) | payer MEDICARE, MEDICAID, SELFPAY ==
[2024-11-28 09:37] VITALS: BP 144/84; PULSE 80; RESP 16; O2SAT 97
--- NOTE | 2024-11-28 09:37 | MHC.OFFVIS ---
Vital Signs 11/28/24 09:37 11/28/24 10:18 BP 144/84 H 150/87 H Blood Pressure Location Lt brachial Lt radial Position Sitting Sitting Respiration 16 16 Pulse 80 81 Pulse Source Pulse Oximeter Pulse Oximeter Pulse Oximetry (%) 97 98 Oxygen Delivery Method Room Air Room Air Intake Visit Reasons: RIGHT FEMORAL NERVE BLOCK/ATIVAN REQUESTED Allergies bee pollen Allergy (Severe, Verified 11/28/24 09:37) Anaphylaxis morphine Allergy (Severe, Verified 11/28/24 09:37) Anaphylaxis cefprozil [From Cefzil] Allergy (Mild, Verified 11/28/24 09:37) Rash chlorhexidine Allergy (Mild, Verified 11/28/24 09:37) Rash Iv Dye Allergy (Uncoded 11/28/24 09:37) stops breathing tramadol Adverse Reaction (Uncoded 11/28/24 09:37) Unknown Medication List - Last Reconciled 11/28/24 by Isabelle Cárdenas LPN albuterol sulfate 90 mcg/actuation 1 inh inhalation Q4-6H PRN buspirone 15 mg PO BID cyclobenzaprine 10 mg PO TID dulaglutide (Trulicity) mg subcut duloxetine 60 mg PO DAILY epinephrine IM hydroxyzine HCl 25 mg PO QID losartan 100 mg PO DAILY pantoprazole 20 mg PO DAILY pregabalin 50 mg PO BID 30 days sitagliptin phosphate (Januvia) 50 mg PO DAILY sulfamethoxazole-trimethoprim 800-160 mg 1 tab PO BID [facility] Medical History Knee pain Prediabetes Stress headaches Anxiety Depression Asthma Hypertension Sleep apnea with use of continuous positive airway pressure (CPAP) Morbid obesity Surgical History Obesity Hx of hysterectomy H/O bilateral breast reduction surgery Hx laparoscopic cholecystectomy S/P bilateral foot surgery Family History Father Lymphoma DM (diabetes mellitus) HTN (hypertension) Stroke Mother HTN (hypertension) DM (diabetes mellitus) Colon cancer Brother Heart attack Brother HTN (hypertension) Brother No problems noted. Brother No problems noted. Brother No problems noted. Sister No problems noted. Sister No problems noted. Daughter Obesity Daughter No problems noted. Other Knee pain Social History (Updated 09/08/24 @ 10:21 by GRACIE Foote) Alcohol intake: current Alcohol intake frequency: holidays/special occasions only Patient Tobacco Use Status: Current everyday Tobacco user Tobacco use type: Cigarette Cigarettes Per Day: 6 Substance Use Type: Marijuana Physical Exam Vital Signs: Last Vital Signs Pulse 81 11/28/24 10:18 Resp 16 11/28/24 10:18 BP 150/87 H 11/28/24 10:18 Pulse Ox 98 11/28/24 10:18 Oxygen Delivery Method Room Air 11/28/24 10:18 Assessment & Plan Assessment & Plan (1) Right knee pain: Code(s): M25.561 - Pain in right knee Category: Medical (2) History of total right knee replacement: Code(s): Z96.651 - Presence of right artificial knee joint Category: Surgical Plan Right femoral nerve block diagnostic. Alyssa is very pleasant 59 years old female who is suffering from severe pain in her right knee after total knee replacement. She was offered and she decided to go for diagnostic femoral nerve block on the right. She came today to the specialty procedure area to receive this injection. Informed consent was explained to the patient risks and benefits were explained alternatives were explained. The patient was taken to the examination bed and positioned the bed supine. Her right groin was prepped with Betadine. Sterilely draped ultrasound probe was brought into the patient's right groin and femoral artery femoral vein and femoral nerve were demonstrated on the screen. 22 gauge 100 mm echo-stim needle was inserted through the skin and advanced to were the femoral nerve the direct ultrasound guidance. When needle entered the perineural area injection of the normal saline was performed after aspiration. The spread of the saline around the femoral nerve was noted on the screen. After that 5 cc of ropivacaine 0.5% was injected into perineural area. The patient tolerated procedure fairly well. After completion of the injection the needle was removed and sterile Band-Aid was applied. Orders: Orders US guide needle placement Today M25.561 - Pain in right knee Coding Level of Care Code Procedure Only Diagnoses Right knee pain M25.561 History of total right knee replacement Z96.651
[2024-11-28 10:18] VITALS: BP 150/87; PULSE 81; RESP 16; O2SAT 98
== END 2024-11-28 10:19 | disposition home or self-care (01) ==
LOC: HO.PMCPRC 09:28
PROVIDERS: PCP Physician Assistant Medical; Visit Provider Anesthesiology
DX: M25.561 Pain in right knee (principal); Z96.651 Presence of right artificial knee joint
CPT/HCPCS: 64447

== ENCOUNTER 2024-12-12 09:57 | Outpatient (AMB) | payer MEDICARE, MEDICAID, SELFPAY ==
--- NOTE | 2024-12-12 10:00 | MHC.OFFVIS ---
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 Galvan. Patient reports 100% pain relief for 1 week with significant improvement his daily activities and functioning, mobility, increase tolerance to climb stairs and better sleep. Patient would like to proceed Sprint PNS trial for a longer-term pain relief. We also reviewed genicular RFA, Curonix PNS trial and implant and therapeutic injections. She reports minimal pain at rest or sitting at 2/10 and 6-7/10 with walking, movements, bending, climbing stairs, or cold weather. Denies any recent cough, cold, infection, fever or any significant changes in medical history since last office visit. Past procedures: 11/28/24: Right diagnostic femoral nerve block-100% pain relief for 1 week PRIOR: Patient is a pleasant 58-year-old female with prior history of chronic heel pain, bilateral TKA (right 2020, left 2018 [facility], Dr. Murdock), bilateral foot reconstruction, status post right ankle painful hardware removal on 07/08/24, prediabetes, depression, presents today for initial evaluation of right knee pain. She was referred to us by Dr. Olguin for potential interventional treatments for chronic right knee pain. Denies any recent trauma, injury, or falls. Patient reports sudden onset of right knee pain on the 3rd day postop during bending exercise by PT. Since then, she had multiple Orthopedic visits for right knee effusion drainage and imaging. More recently, she was seen by Dr. Olguin and underwent xray and whole bone scan which all were within normal limits, no signs of infection or hardware loosening. Right knee pain is localized to lateral and anterior aspects of the knee with aching, stabbing, and burning sensations with activities and rest. She has tried opioids which she did not tolerate well and had anaphylactic reaction with morphine, also tried pregabalin, Tylenol, NSAIDs, topical applications, heat and ice therapy, and completed formal course of PT and home exercise program. She also reports left knee pain due to over compensation after recent right ankle surgery. Reports previous cortisone injections raised her blood sugars significantly. Pain affects her daily activities and functioning, mood, sleep, mobility, social interactions and quality of life. 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 Reports mild benefit with duloxetine. Reports marijuana vape for sleep and pain with partial relief. Location: Bilateral knee, right worse than left Duration: Chronic pain for 2-3 years s/p right TKA Characteristics of symptom or complaint: Aching, stabbing, sharp, shooting, burning Aggravating or associated factors: Cold weather, movement, climbing stairs Relieving factors: Opioids (allergic), diclofenac gel, lidocaine, heat/cold, Tylenol, NSAIDs Treatment: [place] [facility] [place], right TKA 2020, left TKA 2018 at [facility] Dr. Murdock COUNT [facility]CLUD[facility] Medical History Knee pain Prediabetes Stress headaches Anxiety Depression Asthma Hypertension Sleep apnea with use of continuous positive airway pressure (CPAP) Morbid obesity Surgical History Obesity Hx of hysterectomy H/O bilateral breast reduction surgery Hx laparoscopic cholecystectomy S/P bilateral foot surgery Family History Father Lymphoma DM (diabetes mellitus) HTN (hypertension) Stroke Mother HTN (hypertension) DM (diabetes mellitus) Colon cancer Brother Heart attack Brother HTN (hypertension) Brother No problems noted. Brother No problems noted. Brother No problems noted. Sister No problems noted. Sister No problems noted. Daughter Obesity Daughter No problems noted. Other Knee pain Social History Alcohol intake: current Alcohol intake frequency: holidays/special occasions only Patient Tobacco Use Status: Current everyday Tobacco user Tobacco use type: Cigarette Cigarettes Per Day: 6 Substance Use Type: Marijuana Review of Systems Const All systems reviewed & are unremarkable except as noted in HPI and below Physical Exam Vital Signs: Last Vital Signs Pulse 75 12/12/24 10:05 BP 138/83 12/12/24 10:05 Pulse Ox 97 12/12/24 10:05 Oxygen Delivery Method Room Air 12/12/24 10:05 BMI result Body Mass Index 40.4 General: Appears afebrile. Alert and oriented. Mood and affect appropriate. Follows and participates in conversation appropriately. Respiratory effort is unlabored. No cough. Able to transition from sit to stand unassisted. Ambulates with bilaterally normal heel strike and toe off, mild limping. Extrem General: Yes capillary refill normal, Yes no clubbing, cyanosis or edema and Yes no calf tenderness Right lower extremity: knee (Well healed incision. Limited ROM due to pain.) Details: normal to inspection, tenderness Location: of the patella and of the lateral joint line (mild TTP) and crepitus; no swelling, no ecchymosis, no deformity and no unusual warmth Psych Appearance: grossly normal Mental Status: mental status grossly normal Speech and movement: Normal speech and movement present Affect: normal affect Attitude: cooperative Thought process: Normal thought process present Thought content: Normal thought content present, suicidality (none), no hallucinations and No Depressive thoughts present Insight: Good insight present (Psych) Judgement: Good judgement present (Psych) Results Reviewed Results Reviewed: THREE PHASE BONE SCAN 08/02/24 CLINICAL INFORMATION: Presence of unspecified artificial knee joint.. COMPARISON: No previous bone scan is available for comparison. Radiographs of the pelvis and right knee dated 06/15/2024 are available for comparison.. TECHNIQUE: Initial rapid sequence images were obtained over the knees in the anterior and posterior projections during the bolus injection of 38 mCi Tc-99m MDP. Static images of the lower lumbar spine to the mid tibias in multiple projections were then obtained 3 hours post injection. FINDINGS: Initial rapid sequence images show bilaterally symmetrical flow to the knees with no foci of abnormally increased flow present at any site. The visualized vascular flow appears bilaterally symmetrical.. Blood pool images obtained immediately finding the flow study show no suspicious foci of abnormally increased blood pool activity at any site. Photopenic defects in bilateral total knee prostheses are noted. The delayed static images also show the photopenic defects from bilateral total knee prostheses. There is a very mild diffuse increase in activity adjacent to the right knee hardware. This is slightly more intense in the right patella, but still mild in intensity. There are no additional foci of more intensely increased activity. In the other visualized bones there is a focus of mildly increased activity in the right side of L5, posteriorly, probably due to facet arthropathy. IMPRESSION: Well-healed bilateral total knee prostheses are noted. The minimally more intense activity adjacent to the right-sided hardware is probably due to its more recent placement. There are no abnormalities present strongly suspicious for prosthetic loosening, infection, or adjacent fracture.. Assessment & Plan Assessment & Plan (1) Right knee pain: Code(s): M25.561 - Pain in right knee Category: Medical (2) History of total right knee replacement: Code(s): Z96.651 - Presence of right artificial knee joint Category: Surgical Plan Schedule right femoral nerve Sprint PNS trial with local, oral Ativan and fluoroscopy given excellent results with diagnostic femoral nerve block. Expectations, risks and benefits were reviewed. Patient is aware she will be contacted to schedule this procedure. We also reviewed therapeutic injections, Curonix PNS trial and genicular RFA. Short script of oxycodone sent today for moderate to severe pain only while patient is awaiting for procedure. Side effects and precautions were discussed with patient. All questions were answered and the patient is in agreement of plan. Follow-up after Sprint PNS placement and sooner as needed. Medications: New oxycodone Partial Fill upon patient request. 5 mg PO BID 15 days PRN 30 tabs 0RF pain M25.561 - Pain in right knee, Z96.651 - Presence of right artificial knee joint Coding Level of Care Code Est Pt Level 3 (77077) Complex EM visit Add On G2211 Diagnoses Right knee pain M25.561 History of total right knee replacement Z96.651
[2024-12-12 10:05] VITALS: BP 138/83; PULSE 75; O2SAT 97; BMI 40.4
--- OUTSIDE RECORDS SUMMARY | 2024-12-12 11:05 | XMS_ITS | Patient Health Record ---
Author Organization [facility] Address [address] [place] [address] Support Name Relationship Address Phone AllAlyssa Guarantor Unknown [phone] Allergies Allergen (clinical drug ingredient) Drug/Non Drug Allergy documented on EMR Reaction Allergy Type Onset Date Status IV dye (uncoded) Unknown Allergy Act eddy Cefzil Unknown Drug Allergy Active Chlorhexidine Unknown Drug Allergy Act eddy Keflex Unknown Drug Allergy Active lisinopril Lisinopril Unknown Drug Allergy Activ e morphine Morphine Sulfate Unknown Drug Allergy Active Reason For Referral No Information Medications Medication SIG (Take, Route, Frequency, Duration) Notes Start Date End Date Status Phentermine HCl 15 MG 1 capsule Orally O nce a day for 28 days 04/26/2018 Active Topamax 25 MG 1 tablet Orally bid for 30 day(s) 04/17/2020 Active PARoxetine HCl 20 MG 1 tablet in the mor ana luisa Orally Once a day for 30 day(s) Active Ondansetron HCl 4 MG 1 tablet Orally twi ce daily for 30 day(s) 10/09/2019 Active Losartan Potassium-HCTZ 50-12.5 MG 1 tablet Orally Once a day Active Social History Tobacco Use: Social History Observation Description Date Details (start date - stop date) Current Smoker NA - NA Tobacco Use/Smoking Question Answer Notes Are you a current smoker How often do you smoke cigarettes? every day How many cigarettes a day do you smoke? 6-10 Alcohol Screen (Audit-C) Question Answer Notes Did you have a drink contain ing alcohol in the past year? Yes How often did you have a dri nk containing alcohol in the past year? Monthly or less (1 point) How many drinks did you have on a typical day when you were drinking in the past year? 1 or 2 drinks (0 point) Points 1 Interpretation Negative Problems Problem Type SNOMED Code ICD Code Onset Dates Problem Status W/U Status Risk Notes Problem Vitamin D deficiency (65560819) Vitamin D deficiency, unspecified (E55.9) Active confirmed Problem Tobacco user (301213244) Nicotine dependence, cigarettes, uncomplicated (F17.210) Active confirmed Problem Anxiety disorder (895996240) Anxiety disorder, unspecified (F41.9) Active confirmed Problem Insomnia (624085163) Insomnia, unspecified (G47.00) Active confirmed Problem Obstructive sleep apnea syndrome (40140268) Obstructive sleep apnea (adult) (pediatric) (G47.33) Active confirmed Problem Essential hypertension (69059257) Essential (primary) hypertension (I10) Active confirmed Problem Body mass index 40+ - severely obese (701497639) Body mass index (BMI) 40.0-44.9, adult (Z68.41) Active confirmed Plan Of Treatment Future Test Test Name Order Date TSH 04/19/2018 Vitamin D, 25-Hydroxy 04/19/2018 Lipid Panel 04/19/2018 CBC 04/19/2018 MICROALBUMIN,URINE 04/19/2018 COMPREHENSIVE METABOLIC PANEL 04/19/2018 BASIC METABOLIC PANEL 04/26/2018 Insurance Providers Payer Name Payer Address Payer Phone Subscriber Number Group Number Insured Name Patient Relationship to Insured Coverage Start Date Coverage End Date [facility] [address] [place] [phone] [id number] Alyssa Carrizales Self - patient is the insured Medical (General) History Surgical History Surgery Date(Month/Year) left knee surgery bilateral foot surgery torn meniscus Hospitalization History Reason Date(Month/Year)
== END 2024-12-12 10:40 | disposition home or self-care (01) ==
PROVIDERS: PCP Physician Assistant Medical; Visit Provider Nurse Practitioner Family
DX: M25.561 Pain in right knee (principal); Z96.651 Presence of right artificial knee joint
CPT/HCPCS: 99213; G2211

== ENCOUNTER → 2024-12-12 09:57 | Outpatient (BNVA) | payer MEDICARE, MEDICAID, SELFPAY | PROVIDERS: PCP Physician Assistant Medical; Visit Provider Nurse Practitioner Family | DX: M25.561 Pain in right knee (principal); Z96.651 Presence of right artificial knee joint | CPT/HCPCS: 99212 ==

== ENCOUNTER 2024-12-28 06:37 | Outpatient (REF) | payer MEDICARE, MEDICAID, SELFPAY ==
--- OUTSIDE RECORDS SUMMARY | 2024-12-28 06:41 | XMS_ITS | Continuity of Care Document ---
Author Organization [facility] Address [address] [place] [address]- Care Team Providers Care Per Diem Registered Nurse Name Role Phone Passer Amira RIZO Primary Care Physician Encounter [facility] Date(s): 11/22/24 - 12/22/24 [facility]/[address] [address]- Encounter Type: Triage Allergies, Adverse Reactions, Alerts [...] 07/30/14 Gi jaskaran influenza virus vaccine, inactivated 07/22/10 Gi jaskaran influenza virus vaccine, inactivated [...] Maintenance, 11/19/23 2:13:00 PM EST, ER Tablet, [facility], Partial fill upon patient [...] 11 Refills, Maintenance, 09/27/24 11:43:00 AM EST, [facility], 17, USAR 2 INHALACIONES CADA [...] Refills, Maintenance, 10/16/24 8:59:00 AM EST, Tablet, [facility], Partial fill upon patient [...] 5:14:00 PM EDT, Route to Pharmacy Electronically, [facility], Partial fill upon patient request if [...] Maintenance, 04/03/24 9:31:00 AM EDT, EC Capsule, [facility], Partial fill upon patient request if the prescription is for a schedule II opioid drug., 160, cm, 04/03/24 9:07:00 EDT, Height, 111.81, kg, 02/07/24 9:04:00 EDT, Dry Weight Start Date: 04/03/24 Status: Ordered Quantity: 90.0 Unit: capsule Repeat number: 1 EPINEPHrine 0.3 mg injectable solution See Instructions, INYECTAR INTRAMUSCULAR PARA REACIONES ALERGICAS, DONYR AL 911 PARA ATENCION MEDICA, # 2 Unknown, 1 Refills, Maintenance, 03/03/24 12:37:00 PM EDT, [facility], 160, cm, 02/07/24 9:04:00 EDT, Height, 111.81, kg, 02/07/24 9:04:00 EDT, Dry Weight Start Date: 03/03/24 Status: Ordered Quantity: 2.0 Unit: Unknown Repeat number: 1 hydrOXYzine hydrochloride 25 mg oral tablet 1 tablet = 25 mg, By Mouth, 4 times a day, PRN for anxiety, # 40 tablet, 2 Refills, Maintenance, 04/03/24 9:31:00 AM EDT, Tablet, [facility], Partial fill upon patient [...] Refills, Maintenance, 10/16/24 8:58:00 AM EST, Tablet, [facility], Partial fill upon patient [...] 2 Refills, Maintenance, 04/03/24 9:31:00 AM EDT, [facility], Partial fill upon patient [...] Refills, Maintenance, 10/16/24 8:58:00 AM EST, Solution, [facility], Partial fill upon patient [...] 8:59:00 AM EST, Route to Pharmacy Electronically, [facility], Partial fill upon patient [...] Team Personnel Name: Carito Navarro RN Position: [facility] RN Member Role: Primary Care Nurse Name: Amira Casarez Position: [facility] PCO Associate Professional Member Role: PCP Address: [address] [place] [address] Telecom: Care Team Related Persons Name: BETTY GOODSON Name: SELENE BECERRA Insurance Providers Guarantor name: ESTRADA GOODSON Health Plan Information #: 1 Payer: MEDICARE PART B OUTPT Member Number: NA Policy Number: NA Group Number: NA Health Plan Information #: 2 Payer: [place] Member Number: NA Policy Number: NA Group Number: NA
--- OUTSIDE RECORDS SUMMARY | 2024-12-28 06:41 | XMS_ITS | Patient Health Record ---
Author Organization [facility] Address [address] [facility] [address] [place] [address] Support Name Relationship Address Phone AllAlyssa Guarantor Unknown [phone] Allergies Allergen (clinical drug ingredient) Drug/Non Drug Allergy documented on EMR Reaction Allergy Type Onset Date Status IV dye (uncoded) Unknown Allergy Act eddy Cefzil Unknown Drug Allergy Active Chlorhexidine Unknown Drug Allergy Act eddy Keflex Unknown Drug Allergy Active Lisinopril Unknown Drug Allergy Active morphine Morphine Sulfate Unknown Drug Allergy Active [...] Status Risk Notes Problem Vitamin D deficiency (11762065) Vitamin D deficiency, unspecified (E55.9) Active confirmed Problem Tobacco user (645776436) Nicotine dependence, cigarettes, uncomplicated (F17.210) Active confirmed Problem Anxiety disorder (210273047) Anxiety disorder, unspecified (F41.9) Active confirmed Problem Insomnia (976557150) Insomnia, unspecified (G47.00) Active confirmed Problem Obstructive sleep apnea syndrome (54254103) Obstructive sleep apnea (adult) (pediatric) (G47.33) Active confirmed Problem Essential hypertension (87232639) Essential (primary) hypertension (I10) Active confirmed Problem Body mass index 40+ - severely obese (428557527) Body mass index (BMI) 40.0-44.9, adult (Z68.41) Active confirmed Plan Of Treatment Future Test Test Name Order Date TSH 04/19/2018 Vitamin D, 25-Hydroxy 04/19/2018 Lipid Panel 04/19/2018 CBC 04/19/2018 MICROALBUMIN,URINE 04/19/2018 COMPREHENSIVE METABOLIC PANEL 04/19/2018 BASIC METABOLIC PANEL 04/26/2018 Insurance Providers Payer Name Payer Address Payer Phone Subscriber Number Group Number Insured Name Patient Relationship to Insured Coverage Start Date Coverage End Date [facility] [address] [facility] [place] [id number] Alyssa Carrizales Self - patient is the insured Medical (General) History Surgical History Surgery Date(Month/Year) left knee surgery bilateral foot surgery torn meniscus Hospitalization History Reason Date(Month/Year)
== END 2024-12-28 06:38 | disposition home or self-care (01) ==
LOC: CF 06:37
PROVIDERS: Visit Provider Internal Medicine
DX: M25.561 Pain in right knee (principal); G89.29 Other chronic pain; Z96.651 Presence of right artificial knee joint
CPT/HCPCS: 64555; C1778; J2003

== ENCOUNTER 2024-12-28 10:15 | Outpatient (AMB) | payer MEDICARE, MEDICAID, SELFPAY ==
--- NOTE | 2024-12-28 10:18 | MHC.OFFVIS ---
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: No Allergies bee pollen Allergy (Severe, Verified 12/28/24 10:32) Anaphylaxis morphine Allergy (Severe, Verified 12/28/24 10:32) Anaphylaxis cefprozil [From Cefzil] Allergy (Mild, Verified 12/28/24 10:32) Rash chlorhexidine Allergy (Mild, Verified 12/28/24 10:32) Rash Iv Dye Allergy (Uncoded 12/28/24 10:32) stops breathing tramadol Adverse Reaction (Uncoded 12/28/24 10:32) Unknown Medication List - Last Reconciled 12/28/24 by Anna Varela, GEM STONE CUTTER albuterol sulfate 90 mcg/actuation 1 inh inhalation Q4-6H PRN atorvastatin mg PO DAILY buspirone mg PO clonidine HCl mg PO cyclobenzaprine 10 mg PO TID dulaglutide (Trulicity) mg subcut duloxetine mg PO DAILY epinephrine IM hydroxyzine HCl 25 mg PO QID lorazepam (Ativan) 1 mg PO ONCE losartan 50 mg PO DAILY oxycodone 5 mg PO BID PRN 15 days pantoprazole 20 mg PO DAILY pregabalin 50 mg PO BID 30 days sitagliptin phosphate (Januvia) 50 mg PO DAILY sulfamethoxazole-trimethoprim 800-160 mg 1 tab PO BID HPI HPI Right femoral Sprint/ ativan: Details: Patient presents for scheduled procedure. Denies any recent cough, cold, infection, fever or other significant changes in medical history since last office visit. [facility] Medical History Knee pain Prediabetes Stress headaches Anxiety Depression Asthma Hypertension Sleep apnea with use of continuous positive airway pressure (CPAP) Morbid obesity Surgical History Obesity Hx of hysterectomy H/O bilateral breast reduction surgery Hx laparoscopic cholecystectomy S/P bilateral foot surgery Family History Father Lymphoma DM (diabetes mellitus) HTN (hypertension) Stroke Mother HTN (hypertension) DM (diabetes mellitus) Colon cancer Brother Heart attack Brother HTN (hypertension) Brother No problems noted. Brother No problems noted. Brother No problems noted. Sister No problems noted. Sister No problems noted. Daughter Obesity Daughter No problems noted. Other Knee pain Social History Alcohol intake: current Alcohol intake frequency: holidays/special occasions only Patient Tobacco Use Status: Current everyday Tobacco user Tobacco use type: Cigarette Cigarettes Per Day: 6 Substance Use Type: Marijuana Physical Exam Vital Signs: Last Vital Signs Pulse 75 12/28/24 10:32 BP 121/72 12/28/24 10:32 Pulse Ox 98 12/28/24 10:32 Oxygen Delivery Method Room Air 12/28/24 10:32 BMI result Body Mass Index 39.5 Office Procedures Details: Peripheral Nerve Stimulation Temporary Lead Placement, Ultrasound-Guided, Saphenous Nerve, right ? After the risks, benefits and alternatives were discussed with the patient and informed consentwas obtained, patient was placed in the supine position and padded to foster comfort. Appropriate skin and bony landmarks were identified, and pertinent vascular structures were located. The skin overlying the needle entry site was prepped and draped in sterile fashion. Ultrasound was used to identify the femoral artery, the femoral vein and the saphenous branch of the femoral nerve. After identifying and marking the intended target along the course of the saphenous nerve, the skin around the planned entry point and the subcutaneous tissues were injected with local anesthetic. An introducer needle and stimulating probe were assembled, inserted and advanced along the intended course of the saphenous nerve, taking care to maintain the proper depth of insertion as the introducer was advanced under ultrasound guidance. The introducer needle was delivered to a location in proximity to the nerve taking care not to puncture the femoral artery or the vein. Multiple stimulation parameters were used to deliver stimulation to the saphenous nerve in concert with stimulating at multiple positions around the nerve. Nerve target acquisition was confirmed noting generation of sensory and mild motor effects (paresthesia, muscle tension, etc) in the medial knee, leg and ankle; corresponding to the distribution of the saphenous nerve. Various electrical parameter combinations were tested, and the lead location was adjusted (physically relocated under ultrasound guidance) until the patient indicated medial knee paresthesia and tension overlapping the distribution of the patient?s typical region of pain. The stimulating probe was removed from the introducer and a percutaneous lead was guided through the needle and delivered to a location in similar proximity to the nerve. Final location was verified with electrical stimulation and documented. The introducer needle was removed, and the exposed end of the percutaneous lead was attached to an external stimulator unit. Various electrical parameter combinations were again tested until the patient indicated paresthesia and muscle tension overlapping the distribution of the patient?s typical region of pain. After confirming that lead impedance was in the normal range, the external unit was detached, the needle was removed, and the lead was anchored at the skin. The lead was threaded into the connector block and electrical continuity and desired patient response was confirmed. The connector block was attached to the external stimulator unit. The site was covered with a sterile occlusive dressing. A final ultrasound image was taken to document final placement. The patient was observed for stability of vital signs and comfort. Sprint PNS Device: Sprint PNS Device [id number] Percutaneous Peripheral Neuroelectrode Procedure: 81059 - Percutaneous Peripheral Neuroelectrode Procedure code (CPT) selection complete Office Meds lidocaine HCl 10 mg/mL (1 %) injection solution Performing Provider: Larry Michael MD Performing Location: [facility] Administered by: Isabelle Cárdenas LPN on 12/28/24 11:00 Dose Route Admin Location Dispensed Lot Number Expiration Date [facility] [place]NOTE 2] Cartography Teacher 5 mL subcut 5 mL Assessment & Plan Assessment & Plan (1) Right knee pain: Code(s): M25.561 - Pain in right knee Category: Medical (2) Chronic knee pain after total replacement of right knee joint: Code(s): M25.561 - Pain in right knee; G89.29 - Other chronic pain; Z96.651 - Presence of right artificial knee joint Category: Medical Plan Patient is status post temporary right saphenous nerve stimulator placement. Patient tolerated procedure well and was discharged home in stable condition with discharge instructions. All questions were answered. We will follow-up via telephone or in clinic to assess response to therapy. A follow-up appointment was made during today's visit. Orders: Orders US guide needle placement Today Lindsey Abebe, MARK UP DESIGNER, PRESSING MACHINE TENDER M25.561 - Pain in right knee AMB Sprint PNS Today Laryr Michael MD M25.561 - Pain in right knee, Z96.651 - Presence of right artificial knee joint Medications: New lorazepam (Ativan) Take 30 minutes prior to arrival to procedure 1 mg PO ONCE 1 tab 0RF anxiety Lindsey Abebe APRN, PRESSING MACHINE TENDER Coding Level of Care Code Procedure Only Diagnoses Right knee pain M25.561 Chronic knee pain after total replacement of right knee joint M25.561; G89.29; Z96.651 CPT Codes Sprint PNS - Sprint PNS Device: Sprint PNS Device ([id number]) Sprint PNS - SPRINT: 62509 - Percutaneous Peripheral Neuroelectrode ([id number]) Implantable Device Implantable Device Implantable Devices Qty Cartography Teacher Implant Date Expiration Date Analgesic PENS system 1 [employer] 12/28/24 07/17/26
[2024-12-28 10:32] VITALS: BP 121/72; PULSE 75; O2SAT 98; BMI 39.5
== END 2024-12-28 11:40 | disposition home or self-care (01) ==
LOC: HO.PMCPRC 10:15
PROVIDERS: PCP Physician Assistant Medical; Visit Provider Internal Medicine
DX: M25.561 Pain in right knee (principal); G89.29 Other chronic pain; Z96.651 Presence of right artificial knee joint
CPT/HCPCS: 64555

== ENCOUNTER 2025-01-04 12:56 | Outpatient (AMB) | payer MEDICARE, MEDICAID, SELFPAY ==
--- NOTE | 2025-01-04 13:00 | A.OFFVIS_ITS ---
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 Michael. Patient reports 70% pain relief since procedure with significant improvement her daily activities and functioning, mobility, increase tolerance to climb stairs and better sleep. Current stimulation set at 19 with minimal paresthesia along right thigh or knee per patient. Denies any recent cough, cold, infection, fever or any significant changes in medical history since last office visit. The dressing was removed today. Lead insertion site look clean, dry, intact, no redness, no swelling, no pathological discharge. Area was cleansed with Chloraprep, applied Bacitracin and covered with Sprint Tegaderm film and gauze dressing. Patient and family were instructed on dressing changes at home. Past procedures: 12/28/24: Right Femoral Sprint PNS-70% ongoing pain relief 11/28/24: Right diagnostic femoral nerve block-100% pain relief for 1 week PRIOR: Patient is a pleasant 58-year-old female with prior history of chronic heel pain, bilateral TKA (right 2020, left 2018 [facility], Dr. Murdock), bilateral foot reconstruction, status post right ankle painful hardware removal on 07/08/24, prediabetes, depression, presents today for initial evaluation of right knee pain. She was referred to us by Dr. Olguin for potential interventional treatments for chronic right knee pain. Denies any recent trauma, injury, or falls. Patient reports sudden onset of right knee pain on the 3rd day postop during bending exercise by PT. Since then, she had multiple Orthopedic visits for right knee effusion drainage and imaging. More recently, she was seen by Dr. Olguin and underwent xray and whole bone scan which all were within normal limits, no signs of infection or hardware loosening. Right knee pain is localized to lateral and anterior aspects of the knee with aching, stabbing, and burning sensations with activities and rest. She has tried opioids which she did not tolerate well and had anaphylactic reaction with morphine, also tried pregabalin, Tylenol, NSAIDs, topical applications, heat and ice therapy, and completed formal course of PT and home exercise program. She also reports left knee pain due to over compensation after recent right ankle surgery. Reports previous cortisone injections raised her blood sugars significantly. Pain af fects her daily activities and functioning, mood, sleep, mobility, social interactions and quality of life. 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 Reports mild benefit with duloxetine. Reports marijuana vape for sleep and pain with partial relief. Location: Bilateral knee, right worse than left Duration: Chronic pain for 2-3 years s/p right TKA Characteristics of symptom or complaint: Aching, stabbing, sharp, shooting, burning Aggravating or associated factors: Cold weather, movement, climbing stairs Relieving factors: Opioids (allergic), diclofenac gel, lidocaine, heat/cold, Tylenol, NSAIDs Treatment: PT at [employer] [facility] [employer] 2020, right TKA 2020, left TKA [address] [facility] Dr[facility] Medical History Knee pain Prediabetes Stress headaches Anxiety Depression Asthma Hypertension Sleep apnea with use of continuous positive airway pressure (CPAP) Morbid obesity Surgical History Obesity Hx of hysterectomy H/O bilateral breast reduction surgery Hx laparoscopic cholecystectomy S/P bilateral foot surgery Family History Father Lymphoma DM (diabetes mellitus) HTN (hypertension) Stroke Mother HTN (hypertension) DM (diabetes mellitus) Colon cancer Brother Heart attack Brother HTN (hypertension) Brother No problems noted. Brother No problems noted. Brother No problems noted. Sister No problems noted. Sister No problems noted. Daughter Obesity Daughter No problems noted. Other Knee pain Social History Alcohol intake: current Alcohol intake frequency: holidays/special occasions only Patient Tobacco Use Status: Current everyday Tobacco user Tobacco use type: Cigarette Cigarettes Per Day: 6 Substance Use Type: Marijuana Review of Systems Const All systems reviewed & are unremarkable except as noted in HPI and below Physical Exam General: Appears afebrile. Alert and oriented. Mood and affect appropriate. Follows and participates in conversation appropriately. Respiratory effort is unlabored. No cough. Able to transition from sit to stand unassisted. Ambulates with bilaterally normal heel strike and toe off. Lead Insertion Site: Lead insertion site looks clean, dry, intact.? No pathological discharge, no swelling and no erythema.? Lead site dressing were changed today in the clinic. Positive paresthesia achieved at 30 on the right. Results Reviewed Results Reviewed: THREE PHASE BONE SCAN 08/02/24 CLINICAL INFORMATION: Presence of unspecified artificial knee joint.. COMPARISON: No previous bone scan is available for comparison. Radiographs of the pelvis and right knee dated 06/15/2024 are available for comparison.. TECHNIQUE: Initial rapid sequence images were obtained over the knees in the anterior and posterior projections during the bolus injection of 38 mCi Tc-99m MDP. Static images of the lower lumbar spine to the mid tibias in multiple projections were then obtained 3 hours post injection. FINDINGS: Initial rapid sequence images show bilaterally symmetrical flow to the knees with no foci of abnormally increased flow present at any site. The visualized vascular flow appears bilaterally symmetrical.. Blood pool images obtained immediately finding the flow study show no suspicious foci of abnormally increased blood pool activity at any site. Photopenic defects in bilateral total knee prostheses are noted. The delayed static images also show the photopenic defects from bilateral total knee prostheses. There is a very mild diffuse increase in activity adjacent to the right knee hardware. This is slightly more intense in the right patella, but still mild in intensity. There are no additional foci of more intensely increased activity. In the other visualized bones there is a focus of mildly increased activity in the right side of L5, posteriorly, probably due to facet arthropathy. IMPRESSION: Well-healed bilateral total knee prostheses are noted. The minimally more intense activity adjacent to the right-sided hardware is probably due to its more recent placement. There are no abnormalities present strongly suspicious for prosthetic loosening, infection, or adjacent fracture.. Assessment & Plan Assessment & Plan (1) Right knee pain: Code(s): M25.561 - Pain in right knee Category: Medical (2) Chronic knee pain after total replacement of right knee joint: Code(s): M25.561 - Pain in right knee; G89.29 - Other chronic pain; Z96.651 - Presence of right artificial knee joint Category: Medical Plan Patient is one week status post right femoral Sprint PNS placement with good results and improved daily functioning, mobility and sleep. Dressing site was without any signs of infection or pathological discharge and dressing change was done today in the clinic. Patient and family were educated on Sprint dressing changes at home. Patient will continue to adjust stimulation settings as needed and monitor for pain, function and sleep improvement. All questions were answered and the patient agreed with the plan. Follow up for Sprint removal and sooner if needed. Coding Level of Care Code Est Pt Level 3 (66328) Complex EM visit Add On G2211 Diagnoses Right knee pain M25.561 Chronic knee pain after total replacement of right knee joint M25.561; G89.29; Z96.651
[2025-01-04 13:07] VITALS: BP 178/89; PULSE 73; BMI 40.4
--- OUTSIDE RECORDS SUMMARY | 2025-01-04 15:36 | XMS_ITS | Patient Health Record ---
Author Organization [employer] Address [address] [place] [address] Support Name Relationship Address Phone AllAlyssa Guarantor Unknown [phone] Allergies Allergen (clinical drug ingredient) Drug/Non Drug [...] Status Risk Notes Problem Vitamin D deficiency (60378526) Vitamin D deficiency, unspecified (E55.9) Active confirmed Problem Tobacco user (846153606) Nicotine dependence, cigarettes, uncomplicated (F17.210) Active confirmed Problem Anxiety disorder (250244660) Anxiety disorder, unspecified (F41.9) Active confirmed Problem Insomnia (648020676) Insomnia, unspecified (G47.00) Active confirmed Problem Obstructive sleep apnea syndrome (15766029) Obstructive sleep apnea (adult) (pediatric) (G47.33) Active confirmed Problem Essential hypertension (18409416) Essential (primary) hypertension (I10) Active confirmed Problem Body mass index 40+ - severely obese (104216308) Body mass index (BMI) 40.0-44.9, adult (Z68.41) Active confirmed Plan Of Treatment Future Test Test Name Order Date TSH 04/19/2018 Vitamin D, 25-Hydroxy 04/19/2018 Lipid Panel 04/19/2018 CBC 04/19/2018 MICROALBUMIN,URINE 04/19/2018 COMPREHENSIVE METABOLIC PANEL 04/19/2018 BASIC METABOLIC PANEL 04/26/2018 Insurance Providers Payer Name Payer Address Payer Phone Subscriber Number Group Number Insured Name Patient Relationship to Insured Coverage Start Date Coverage End Date [facility] [address] [place] [address] [facility] [place] [phone] [id number] Alyssa Carrizales Self - patient is the insured Medical (General) History Surgical History Surgery Date(Month/Year) left knee surgery bilateral foot surgery torn meniscus Hospitalization History Reason Date(Month/Year)
== END 2025-01-04 13:23 | disposition home or self-care (01) ==
PROVIDERS: PCP Physician Assistant Medical; Visit Provider Nurse Practitioner Family
DX: M25.561 Pain in right knee (principal); G89.29 Other chronic pain; Z96.651 Presence of right artificial knee joint
CPT/HCPCS: 99024

== ENCOUNTER → 2025-01-04 12:56 | Outpatient (BNVA) | payer MEDICARE, MEDICAID, SELFPAY | PROVIDERS: PCP Physician Assistant Medical; Visit Provider Nurse Practitioner Family | DX: M25.561 Pain in right knee (principal); G89.29 Other chronic pain; Z96.651 Presence of right artificial knee joint; Z96.82 Presence of neurostimulator | CPT/HCPCS: 99212 ==

== ENCOUNTER 2025-02-22 10:53 | Outpatient (AMB) | payer MEDICARE, MEDICAID, SELFPAY ==
--- NOTE | 2025-02-22 10:56 | MHC.OFFVIS ---
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 She had her Sprint PNS system removed today after reporting effective pain relief, with her pain levels reaching 0/10 during its usage. Previously, she experienced muscle contractions, which improved with adjustments to the device stimulation settings through weekly telephone follow ups with Yovanny Posada. Her history includes bilateral knee arthroplasty, with the left knee functioning well. The patient denies any recent injury or trauma. Patient reports significant improvement in her daily functioning, mobility, sleep and social interactions. The dressing was removed today. Lead insertion site look clean, dry, intact, no redness, no swelling, no pathological discharge. Area was cleansed with Chloraprep, lead removed with tip intact, area was cleansed again with Chloraprep, applied Bacitracin and covered with dry dressing. Past procedures: 02/22/25: Right Femoral Sprint removal-100% ongoing pain relief 12/28/24: Right Femoral Sprint PNS-70% ongoing pain relief 11/28/24: Right diagnostic femoral nerve block-100% pain relief for 1 week PRIOR: Patient is a pleasant 58-year-old female with prior history of chronic heel pain, bilateral TKA (right 2020, left 2018 [facility], Dr. Murdock), bilateral foot reconstruction, status post right ankle painful hardware removal on 07/08/24, prediabetes, depression, presents today for initial evaluation of right knee pain. She was referred to us by Dr. Olguin for potential interventional treatments for chronic right knee pain. Denies any recent trauma, injury, or falls. Patient reports sudden onset of right knee pain on the 3rd day postop during bending exercise by PT. Since then, she had multiple Orthopedic visits for right knee effusion drainage and imaging. More recently, she was seen by Dr. Olguin and underwent xray and whole bone scan which all were within normal limits, no signs of infection or hardware loosening. Right knee pain is localized to lateral and anterior aspects of the knee with aching, stabbing, and burning sensations with activities and rest. She has tried opioids which she did not tolerate well and had anaphylactic reaction with morphine, also tried pregabalin, Tylenol, NSAIDs, topical applications, heat and ice therapy, and completed formal course of PT and home exercise program. She also reports left knee pain due to over compensation after recent right ankle surgery. Reports previous cortisone injections raised her blood sugars significantly. Pain affects her daily activities and functioning, mood, sleep, mobility, social interactions and quality of life. 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 Reports mild benefit with duloxetine. Reports marijuana vape for sleep and pain with partial relief. Location: Bilateral knee, right worse than left Duration: Chronic pain for 2-3 years s/p right TKA Characteristics of symptom or complaint: Aching, stabbing, sharp, shooting, burning Aggravating or associated factors: Cold weather, movement, climbing stairs Relieving factors: Opioids (allergic), diclofenac gel, lidocaine, heat/cold, Tylenol, NSAIDs Treatment: PT at [employer] [facility] [place] 2020, right TKA 2020, left TKA 2018 at [facility] Dr. Murdock [facility] Medical History Knee pain Prediabetes Stress headaches Anxiety Depression Asthma Hypertension Sleep apnea with use of continuous positive airway pressure (CPAP) Morbid obesity Surgical History Obesity Hx of hysterectomy H/O bilateral breast reduction surgery Hx laparoscopic cholecystectomy S/P bilateral foot surgery Family History Father Lymphoma DM (diabetes mellitus) HTN (hypertension) Stroke Mother HTN (hypertension) DM (diabetes mellitus) Colon cancer Brother Heart attack Brother HTN (hypertension) Brother No problems noted. Brother No problems noted. Brother No problems noted. Sister No problems noted. Sister No problems noted. Daughter Obesity Daughter No problems noted. Other Knee pain Social History Alcohol intake: current Alcohol intake frequency: holidays/special occasions only Patient Tobacco Use Status: Current everyday Tobacco user Tobacco use type: Cigarette Cigarettes Per Day: 6 Substance Use Type: Marijuana Review of Systems Const Details: - Musculoskeletal: Reports improvement in left hip and knee pain; denies recent injuries or trauma. - Skin: Reports minor irritation from Tegaderm. All systems reviewed & are unremarkable except as noted in HPI and below Physical Exam General: Appears afebrile. Alert and oriented. Mood and affect appropriate. Follows and participates in conversation appropriately. Respiratory effort is unlabored. No cough. Able to transition from sit to stand unassisted. Ambulates with bilaterally normal heel strike and toe off. Lead Insertion Site: Lead insertion site looks clean, dry, intact.? No pathological discharge, no swelling and no erythema.? Observed minor irritation from Tegaderm at the application site. Bacitracin applied. Lead pullled with tip intact. Results Reviewed Results Reviewed: THREE PHASE BONE SCAN 08/02/24 CLINICAL INFORMATION: Presence of unspecified artificial knee joint.. COMPARISON: No previous bone scan is available for comparison. Radiographs of the pelvis and right knee dated 06/15/2024 are available for comparison.. TECHNIQUE: Initial rapid sequence images were obtained over the knees in the anterior and posterior projections during the bolus injection of 38 mCi Tc-99m MDP. Static images of the lower lumbar spine to the mid tibias in multiple projections were then obtained 3 hours post injection. FINDINGS: Initial rapid sequence images show bilaterally symmetrical flow to the knees with no foci of abnormally increased flow present at any site. The visualized vascular flow appears bilaterally symmetrical.. Blood pool images obtained immediately finding the flow study show no suspicious foci of abnormally increased blood pool activity at any site. Photopenic defects in bilateral total knee prostheses are noted. The delayed static images also show the photopenic defects from bilateral total knee prostheses. There is a very mild diffuse increase in activity adjacent to the right knee hardware. This is slightly more intense in the right patella, but still mild in intensity. There are no additional foci of more intensely increased activity. In the other visualized bones there is a focus of mildly increased activity in the right side of L5, posteriorly, probably due to facet arthropathy. IMPRESSION: Well-healed bilateral total knee prostheses are noted. The minimally more intense activity adjacent to the right-sided hardware is probably due to its more recent placement. There are no abnormalities present strongly suspicious for prosthetic loosening, infection, or adjacent fracture.. Assessment & Plan Assessment & Plan (1) Right knee pain: Code(s): M25.561 - Pain in right knee Category: Medical (2) Chronic knee pain after total replacement of right knee joint: Code(s): M25.561 - Pain in right knee; G89.29 - Other chronic pain; Z96.651 - Presence of right artificial knee joint Category: Medical Plan Patient is 2 months status post right femoral Sprint PNS placement with good results and improved daily functioning, mobility and sleep. The femoral peripheral nerve stimulator was removed as planned, with excellent pain management reported. Minor skin irritation from Tegaderm has been managed with skin care and Bacitracin application. Ongoing monitoring of her right knee pain will continue. She has history of bilateral knee replacements and has noticed increased in the left hip and left knee pain for overcompensating while ambulating due to right knee pain. Now that right knee pain has significantly decreased and currently reports no pain, patient reports she is distributing her weight more evenly and left side symptoms have been minimal. The patient will schedule follow-up care if pain returns to baseline. All questions were answered and the patient agreed with the plan. Follow up as needed. Patient was informed and verbally consented to the use of an ambient scribe for clinic note documentation during this visit. Patient Instructions: I discussed with the patient the successful removal of the right femoral peripheral nerve stimulator and its role in managing her pain effectively. We reviewed the relief of musculoskeletal pain she experienced and addressed a minor skin irritation from Tegaderm with Bacitracin application. We agreed on continued monitoring of her pain levels, particularly in the left hip and right knee. I advised her to return for evaluation should pain increase to baseline. Coding Level of Care Code Est Pt Level 3 (94825) Complex EM visit Add On G2211 Diagnoses Right knee pain M25.561 Chronic knee pain after total replacement of right knee joint M25.561; G89.29; Z96.651
[2025-02-22 11:03] VITALS: BP 157/88; PULSE 75; O2SAT 99; BMI 40.4
--- OUTSIDE RECORDS SUMMARY | 2025-02-22 12:49 | XMS_ITS | Patient Health Record ---
Author Organization [employer] [facility] Address [address] [place] [address] Support Name Relationship Address Phone AllAlyssa Guarantor Unknown [phone] Allergies Allergen (clinical drug ingredient) Drug/Non Drug [...] Status Risk Notes Problem Vitamin D deficiency (53311355) Vitamin D deficiency, unspecified (E55.9) Active confirmed Problem Tobacco user (665649245) Nicotine dependence, cigarettes, uncomplicated (F17.210) Active confirmed Problem Anxiety disorder (890953908) Anxiety disorder, unspecified (F41.9) Active confirmed Problem Insomnia (651196992) Insomnia, unspecified (G47.00) Active confirmed Problem Obstructive sleep apnea syndrome (24688731) Obstructive sleep apnea (adult) (pediatric) (G47.33) Active confirmed Problem Essential hypertension (13434706) Essential (primary) hypertension (I10) Active confirmed Problem Body mass index 40+ - severely obese (777243869) Body mass index (BMI) 40.0-44.9, adult (Z68.41) Active confirmed Plan Of Treatment Future Test Test Name Order Date TSH 04/19/2018 Vitamin D, 25-Hydroxy 04/19/2018 Lipid Panel 04/19/2018 CBC 04/19/2018 MICROALBUMIN,URINE 04/19/2018 COMPREHENSIVE METABOLIC PANEL 04/19/2018 BASIC METABOLIC PANEL 04/26/2018 Insurance Providers Payer Name Payer Address Payer Phone Subscriber Number Group Number Insured Name Patient Relationship to Insured Coverage Start Date Coverage End Date [facility] [address] [place] [phone] [id number] Alyssa Carrizales Self - patient is the insured Medical (General) History Surgical History Surgery Date(Month/Year) left knee surgery bilateral foot surgery torn meniscus Hospitalization History Reason Date(Month/Year)
== END 2025-02-22 11:09 | disposition home or self-care (01) ==
LOC: HO.PMC 10:54
PROVIDERS: PCP Physician Assistant Medical; Visit Provider Nurse Practitioner Family
DX: M25.561 Pain in right knee (principal); G89.29 Other chronic pain; Z96.651 Presence of right artificial knee joint
CPT/HCPCS: 99213; G2211

== ENCOUNTER → 2025-02-22 10:53 | Outpatient (BNVA) | payer MEDICARE, MEDICAID, SELFPAY | PROVIDERS: PCP Physician Assistant Medical; Visit Provider Nurse Practitioner Family | DX: M25.561 Pain in right knee (principal); G89.29 Other chronic pain; Z96.651 Presence of right artificial knee joint | CPT/HCPCS: 99212 ==

== ENCOUNTER 2025-03-30 15:03 | Outpatient (AMB) | payer MEDICARE, MEDICAID, SELFPAY ==
--- OUTSIDE RECORDS SUMMARY | 2025-03-30 15:05 | XMS_ITS | Patient Health Record ---
Author Organization [employer] [facility] Address [address] [place] [address] Support Name Relationship Address Phone AllAlyssa Guarantor Unknown [phone] Allergies Allergen (clinical drug ingredient) Drug/Non Drug [...] Status Risk Notes Problem Vitamin D deficiency (61080101) Vitamin D deficiency, unspecified (E55.9) Active confirmed Problem Nicotine dependence, cigarettes, uncomplicated (F17.210) Active confirmed Problem Anxiety disorder (766363738) Anxiety disorder, unspecified (F41.9) Active confirmed Problem Insomnia (474208446) Insomnia, unspecified (G47.00) Active confirmed Problem Obstructive sleep apnea syndrome (52731666) Obstructive sleep apnea (adult) (pediatric) (G47.33) Active confirmed Problem Essential hypertension (95901700) Essential (primary) hypertension (I10) Active confirmed Problem Body mass index 40+ - severely obese (958739290) Body mass index (BMI) 40.0-44.9, adult (Z68.41) Active confirmed Plan Of Treatment Future Test Test Name Order Date TSH 04/19/2018 Vitamin D, 25-Hydroxy 04/19/2018 Lipid Panel 04/19/2018 CBC 04/19/2018 MICROALBUMIN,URINE 04/19/2018 COMPREHENSIVE METABOLIC PANEL 04/19/2018 BASIC METABOLIC PANEL 04/26/2018 Insurance Providers Payer Name Payer Address Payer Phone Subscriber Number Group Number Insured Name Patient Relationship to Insured Coverage Start Date Coverage End Date [facility] [address] [place] [phone] [id number] Alyssa Carrizales Self - patient is the insured Medical (General) History Surgical History Surgery Date(Month/Year) left knee surgery bilateral foot surgery torn meniscus Hospitalization History Reason Date(Month/Year)
--- NOTE | 2025-03-30 15:07 | MHC.OFFVIS ---
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 Traffic Required: No Accompanied by: Other Relationship Allergies bee pollen Allergy (Severe, Verified 03/30/25 15:12) Anaphylaxis morphine Allergy (Severe, Verified 03/30/25 15:12) Anaphylaxis cefprozil [From Cefzil] Allergy (Mild, Verified 03/30/25 15:12) Rash chlorhexidine Allergy (Mild, Verified 03/30/25 15:12) Rash Iv Dye Allergy (Uncoded 12/28/24 10:32) stops breathing tramadol Adverse Reaction (Uncoded 12/28/24 10:32) Unknown HPI Comments Details: The patient is a 59-year-old female presenting with left hip pain, which commenced approximately four to five months ago, intensifying over the past month. Denies any recent trauma, injury, or falls. The pain occasionally radiates to the left groin area and constantly to lateral left hip and significantly impedes her ability to navigate stairs, also affecting her sleep quality. Denies locking, popping sensation or instability with weight-bearing. She has not undergone imaging or physical therapy and has attempted various pain management strategies including topical applications and oral analgesics without relief. A prior clinical consultation prompted her referral for targeted evaluation and management within this practice. Patient denies previous hip surgery or injections. She was previously seen in our office for chronic right knee pain and underwent Sprint PNS trial with ongoing and sustained pain relief. - Onset and Timing: Began 4 to 5 months ago, worsening in the last month. - Quality and Character: Pain radiates to the groin, localized tenderness over bursa area. - Primary Location: Left hip - Areas of Radiation: Groin, left lateral hip at the GTB area - Exacerbating Factors: Ascending/descending stairs, lying on the left side during sleep. - Relieving Factors: None confirmed effective; attempted heat, ice, diclofenac gel, lidocaine patches, and Tylenol without notable relief. Oxycodone per PCP was temporarily effective. - Functional Impact: Affects ability to ascend/descend stairs and causes sleep disturbances. - Affect: Pain impacts her ability to perform activities that require stair navigation and affects sleep. - Analgesia: Has tried diclofenac gel, lidocaine patches, Tylenol; desired general pain relief with potential hip or bursa injection. - Adverse Effects: No noted adverse effects from attempted analgesia. - Activities of Daily Living: Pain affects stair navigation and sleep; no aberrant behaviors reported. - Aberrant Drug Related Behaviors: No reported medication misuse or aberrant behaviors. PRIOR: The patient is a 59-year-old female presenting with a follow-up for the removal of a right femoral peripheral nerve stimulator and pain management. She had her Sprint PNS system removed today after reporting effective pain relief, with her pain levels reaching 0/10 during its usage. Previously, she experienced muscle contractions, which improved with adjustments to the device stimulation settings through weekly telephone follow ups with Yovanny Posada. Her history includes bilateral knee arthroplasty, with the left knee functioning well. The patient denies any recent injury or trauma. Patient reports significant improvement in her daily functioning, mobility, sleep and social interactions. The dressing was removed today. Lead insertion site look clean, dry, intact, no redness, no swelling, no pathological discharge. Area was cleansed with Chloraprep, lead removed with tip intact, area was cleansed again with Chloraprep, applied Bacitracin and covered with dry dressing. Past procedures: 02/22/25: Right Femoral Sprint removal-100% ongoing pain relief 12/28/24: Right Femoral Sprint PNS-70% ongoing pain relief 11/28/24: Right diagnostic femoral nerve block-100% pain relief for 1 week PRIOR: Patient is a pleasant 58-year-old female with prior history of chronic heel pain, bilateral TKA (right 2020, left 2018 [facility], Dr. Murdock), bilateral foot reconstruction, status post right ankle painful hardware removal on 07/08/24, prediabetes, depression, presents today for initial evaluation of right knee pain. She was referred to us by Dr. Olguin for potential interventional treatments for chronic right knee pain. Denies any recent trauma, injury, or falls. Patient reports sudden onset of right knee pain on the 3rd day postop during bending exercise by PT. Since then, she had multiple Orthopedic visits for right knee effusion drainage and imaging. More recently, she was seen by Dr. Olguin and underwent xray and whole bone scan which all were within normal limits, no signs of infection or hardware loosening. Right knee pain is localized to lateral and anterior aspects of the knee with aching, stabbing, and burning sensations with activities and rest. She has tried opioids which she did not tolerate well and had anaphylactic reaction with morphine, also tried pregabalin, Tylenol, NSAIDs, topical applications, heat and ice therapy, and completed formal course of PT and home exercise program. She also reports left knee pain due to over compensation after recent right ankle surgery. Reports previous cortisone injections raised her blood sugars significantly. Pain affects her daily activities and functioning, mood, sleep, mobility, social interactions and quality of life. 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. Reports mild benefit with duloxetine. Reports marijuana vape for sleep and pain with partial relief. Location: Bilateral knee, right worse than left Duration: Chronic pain for 2-3 years s/p right TKA Characteristics of symptom or complaint: Aching, stabbing, sharp, shooting, burning Aggravating or associated factors: Cold weather, movement, climbing stairs Relieving factors: Opioids (allergic), diclofenac gel, lidocaine, heat/cold, Tylenol, NSAIDs Treatment: PT at [facility] [employer] [facility] [employer] 2020, right TKA 2020, left TKA 2018 at [facility] Dr. Murdock [facility] Medical History Knee pain Prediabetes Stress headaches Anxiety Depression Asthma Hypertension Sleep apnea with use of continuous positive airway pressure (CPAP) Morbid obesity Surgical History Obesity Hx of hysterectomy H/O bilateral breast reduction surgery Hx laparoscopic cholecystectomy S/P bilateral foot surgery Family History Father Lymphoma DM (diabetes mellitus) HTN (hypertension) Stroke Mother HTN (hypertension) DM (diabetes mellitus) Colon cancer Brother Heart attack Brother HTN (hypertension) Brother No problems noted. Brother No problems noted. Brother No problems noted. Sister No problems noted. Sister No problems noted. Daughter Obesity Daughter No problems noted. Other Knee pain Social History Alcohol intake: current Alcohol intake frequency: holidays/special occasions only Patient Tobacco Use Status: Current everyday Tobacco user Tobacco use type: Cigarette Cigarettes Per Day: 6 Substance Use Type: Marijuana Review of Systems Const Details: - Musculoskeletal: Reports left hip pain radiating to the groin and GTB, denies right side symptoms and prior hip replacements. - Neurological: Denies diabetic neuropathy; pain impacts sleep and stair navigation. - General: Denies symptoms on the right side, reports difficulty sleeping on affected side. All systems reviewed & are unremarkable except as noted in HPI and below Physical Exam Vital Signs: Last Vital Signs Pulse 94 03/30/25 15:11 BP 159/76 H 03/30/25 15:11 Pulse Ox 99 03/30/25 15:11 Oxygen Delivery Method Room Air 03/30/25 15:11 BMI result Body Mass Index 40.4 General: Appears afebrile. Morbidly obese. Alert and oriented. Mood and affect appropriate. Follows and participates in conversation appropriately. Respiratory effort is unlabored. No cough. Able to transition from sit to stand unassisted. Ambulates with bilaterally normal heel strike and toe off. Mildly antalgic gait with limping. Back/Spine/Pelvis Other: Demonstrates 5/5 right and 4/5 left strength of quadriceps bilaterally as well as flexion/dorsiflexion of bilateral feet against resistance. 2+ pedal pulses bilaterally. Straight leg rise with dorsiflexion negative bilaterally. Facet loading test positive bilaterally. Toshia sign positive on the left, unable to perform Neo?s due to pain, Stinchfield tests are negative bilaterally. Mild left groin pain with I/E hip rotations. Moderate TTP to left GTB. Cervical Spine: cervical ROM normal and No Cervical spine tenderness Thoracic/Lumbar Spine: thoracic and lumbar spine normal to inspection, Lasegue's sign negative, straight leg raise negative bilaterally, thoraco-lumbar ROM limited, No thoracic spinal tenderness and No lumbar spinal tenderness Results Reviewed Results Reviewed: No imaging results are available for review. Assessment & Plan Assessment & Plan (1) Left hip pain: Code(s): M25.552 - Pain in left hip Category: Medical (2) Greater trochanteric bursitis of left hip: Code(s): M70.62 - Trochanteric bursitis, left hip Category: Medical Plan The focus is on managing the left hip pain, which has worsened over the past 4-5 months. I will initiate with imaging to investigate structural and degenerative causes. Based on results, targeted injections to the hip or bursa under fluoroscopy may be considered. Patient recommended to avoid activities that worsen the pain such as lying on the left side, prolonged walking, and avoid crossing legs when sitting. Use a pillow between her knees and sleeping on your side. Patient may use ice packs to reduce inflammation and alternate with warm compresses to relief stiffness and promote healing. Consider physical therapy for stretching and strengthening exercises for the hip and gluteal muscles. Encouraged weight optimization to reduce stress on hip joints. All questions and concerns have been answered and patient agreed with the plan. Follow-up for x-ray results and sooner as needed. Patient was informed and verbally consented to the use of an ambient scribe for clinic note documentation during this visit. Orders: Orders XR hip LT min 2V Today M25.552 - Pain in left hip, M70.62 - Trochanteric bursitis, left hip Coding Level of Care Code Est Pt Level 4 (39060) Complex EM visit Add On G2211 Diagnoses Left hip pain M25.552 Greater trochanteric bursitis of left hip M70.62
[2025-03-30 15:11] VITALS: BP 159/76; PULSE 94; O2SAT 99; BMI 40.4
== END 2025-03-30 15:25 | disposition home or self-care (01) ==
LOC: HO.PMC 15:03
PROVIDERS: PCP Physician Assistant Medical; Visit Provider Nurse Practitioner Family
DX: M25.552 Pain in left hip (principal); M70.62 Trochanteric bursitis, left hip
CPT/HCPCS: 99214; G2211

== ENCOUNTER 2025-03-30 15:03 | Outpatient (REF) | payer MEDICARE, MEDICAID, SELFPAY ==
--- NOTE | ~2025-03-30 | XR_ITS ---
CLINICAL HISTORY: M25.552 - Pain in left hip Exam: AP and frog-leg lateral views of the left hip. Comparison: None. Findings: Bony alignment is anatomic. No fracture. Mild degenerative change of the left hip joint. No erosions. Impression: Mild left hip DJD. This document has been electronically signed by: Horacio Dye MD on 04/03/2025 08:34:59
== END 2025-03-30 15:04 | disposition home or self-care (01) ==
LOC: HO.XRAY 15:03
PROVIDERS: PCP Physician Assistant Medical; Visit Provider Nurse Practitioner Family
DX: M25.552 Pain in left hip (principal); M70.62 Trochanteric bursitis, left hip
CPT/HCPCS: 73502; 99212

== ENCOUNTER → 2025-03-30 15:33 | Outpatient (BNV) | payer MEDICARE, MEDICAID, SELFPAY | PROVIDERS: PCP Physician Assistant Medical; Visit Provider Radiology Diagnostic Radiology | DX: M25.552 Pain in left hip (principal) | CPT/HCPCS: 73502 ==

== ENCOUNTER 2025-05-24 06:40 | Outpatient (REF) | payer OTHER, MEDICARE, MEDICAID, SELFPAY ==
--- NOTE | ~2025-05-24 | FL_ITS ---
EXAMINATION: FL GUIDANCE ONLY HISTORY: M25.552 - Pain in left hip COMPARISON: None available. TECHNIQUE: Fluoroscopy time: Less than 0.1 minute. Cumulative Dose: 3.40 mGy. DAP: 0.0360 mGym2 Images: 1. FINDINGS: A single fluoroscopic spot film of the left hip demonstrates a needle in place. FL/FL guidance in treatment room IMPRESSION: Fluoroscopy during procedure. Please see procedure report for additional information. Electronically signed by: Marin Woods MD 05/24/2025 03:48 PM EDT
--- OUTSIDE RECORDS SUMMARY | 2025-05-24 06:42 | XMS_ITS | Patient Health Record ---
Author Organization [employer] Address [address] [place] [address] Support Name Relationship Address Phone AllAlyssa Guarantor Unknown [phone] Allergies Allergen (clinical drug ingredient) Drug/Non Drug [...] MG 1 capsule Orally O nce a day; Duration: 28 days 04/26/2018 Active Topamax 25 MG 1 tablet Orally bid; Duration: 30 day(s) 04/17/2020 Active PARoxetine HCl 20 MG 1 tablet in the mor ana luisa Orally Once a day; Duration: 30 day(s) Active Ondansetron HCl 4 MG 1 tablet Orally twi ce daily; Duration: 30 day(s) 10/09/2019 Active Losartan Potassium-HCTZ 50-12.5 [...] Status Risk Notes Problem Vitamin D deficiency (72617735) Vitamin D deficiency, unspecified (E55.9) Active confirmed Problem Tobacco user (647190872) Nicotine dependence, cigarettes, uncomplicated (F17.210) Active confirmed Problem Anxiety disorder (897645511) Anxiety disorder, unspecified (F41.9) Active confirmed Problem Insomnia (079378232) Insomnia, unspecified (G47.00) Active confirmed Problem Obstructive sleep apnea syndrome (38175851) Obstructive sleep apnea (adult) (pediatric) (G47.33) Active confirmed Problem Essential hypertension (32907363) Essential (primary) hypertension (I10) Active confirmed Problem Body mass index 40+ - severely obese (734307604) Body mass index (BMI) 40.0-44.9, adult (Z68.41) Active confirmed Plan Of Treatment Future Test Test Name Order Date TSH 04/19/2018 Vitamin D, 25-Hydroxy 04/19/2018 Lipid Panel 04/19/2018 CBC 04/19/2018 MICROALBUMIN,URINE 04/19/2018 COMPREHENSIVE METABOLIC PANEL 04/19/2018 BASIC METABOLIC PANEL 04/26/2018 Insurance Providers Payer Name Payer Address Payer Phone Subscriber Number Group Number Insured Name Patient Relationship to Insured Coverage Start Date Coverage End Date [facility] [address] [place] [phone] [id number] Alyssa Carrizales Self - patient is the insured Medical (General) History Surgical History Surgery Date(Month/Year) left knee surgery bilateral foot surgery torn meniscus Hospitalization History Reason Date(Month/Year)
--- OUTSIDE RECORDS SUMMARY | 2025-05-24 06:43 | XMS_ITS | Patient Health Record ---
Author Organization [facility] Address [address] [place] [address] Care Team Providers Care Gas Adjuster Name Role Phone Pattie Mishra MD Primary Care Provider Андрей Morocho Unavailable [phone] Allergies Allergen (clinical drug ingredient) Drug/Non Drug Allergy documented on EMR Reaction Allergy Type Onset Date Status Biaxin Unknown Drug Allergy Active cephalexin Cephalexin rash Drug Allergy Activ e Chlorhexidine Unknown Drug Allergy Act eddy erythromycin Erythromycin Unknown Drug Allergy A ctive morphine Morphine Unknown Drug Allergy Active IVP dye Unknown Drug Allergy Active Z Pac Unknown Drug Allergy Active bee sting Unknown Drug Allergy Active Reason For Referral No Information Medications Medication SIG (Take, Route, Frequency, Duration) Notes Start Date End Date Status oxyCODONE HCl 5 MG (Schedule II Drug) T ABHIJIT 1 TABLET BY MOUTH EVERY [address] WHILE ON THIS MEDICATION Oral; Duration: 7 Not-Taking traZODone HCl 50 MG TAKE 1 TABLET BY BRIDGET TH AT BEDTIME Oral; Duration: 30 Active Phentermine HCl 15 MG (Schedule IV Drug) TAKE 1 CAPSULE BY MOUTH ONCE DAILY FOR 28 DAYS Oral; Duration: 28 Active Work Note-Appointment . . . Pt had a [facility] appointment today; Duration: . 07/06/2018 Active PARoxetine HCl 20 MG TAKE 1 TABLET BY MO UTH EVERY DAY Oral; Duration: 30 Active Clindamycin HCl 300 MG 1 capsule Orally every 8 hrs; Duration: 10 day(s) 07/06/2018 Active Losartan Potassium 25 MG TAKE 1 TABLET B Y MOUTH ONCE DAILY Oral; Duration: 30 Active Social History Tobacco Use: Social History Observation Description Date Details (start date - stop date) Current Smoker NA - NA Tobacco Use/Smoking Question Answer Notes Are you a: current smoker When did you start smoking? 20+ years How often do you smoke cigarettes? every day How many cigarettes a day do you smoke? 6-10 Are you interested in quitting? Not ready to gail t Alcohol Screen Question Answer Notes Did you have a drink containing alcohol in the p ast year? Yes Points 0 Interpretation Negative Tobacco use other than smoking: Question Answer Notes Are you an other tobacco user? No Plan Of Treatment Pending Test Test Name Order Date I&D ABSCESS- SIMPLE,SINGLE 018 Insurance Providers Payer Name Payer Address Payer Phone Subscriber Number Group Number Insured Name Patient Relationship to Insured Coverage Start Date Coverage End Date [facility] [address] [facility] [place] [id number] Alyssa Carrizales Self - patient is the insured Medical (General) History Medical History History ICD Code Anxiety disorder asthma Knee Pain Hypertension Joint implants/screws Depression Surgical History Surgery Date(Month/Year) ankle reconstruction 06/2016, 06/2017 knee surgery 04/2018 hysterectomy 2006 tubal ligation 1996 knee surgery, left 04/2018
== END 2025-05-24 06:41 | disposition home or self-care (01) ==
LOC: CF 06:40
PROVIDERS: Visit Provider Internal Medicine
DX: M25.552 Pain in left hip (principal)
CPT/HCPCS: 20610; J2003; J2795; J3301; Q9967

== ENCOUNTER 2025-05-24 12:27 | Outpatient (AMB) | payer MEDICARE, MEDICAID, SELFPAY ==
[2025-05-24 12:39] VITALS: BP 136/72; PULSE 84; RESP 16; O2SAT 99; BMI 40.4
--- NOTE | 2025-05-24 12:39 | A.OFFVIS_ITS ---
Vital Signs 05/24/25 12:39 05/24/25 13:27 Height 5 ft 3 in 5 ft 3 in Weight 228 lb BMI 40.4 BP 136/72 118/86 Blood Pressure Location Lt brachial Rt brachial Position Sitting Sitting Respiration 16 Pulse 84 82 Pulse Source Pulse Oximeter Pulse Oximeter Pulse Oximetry (%) 99 99 Oxygen Delivery Method Room Air Room Air Intake Visit Reasons: Left hip inj w/ fluoro/ ativan Allergies bee pollen Allergy (Severe, Verified 03/30/25 15:12) Anaphylaxis morphine Allergy (Severe, Verified 03/30/25 15:12) Anaphylaxis cefprozil (From Cefzil) Allergy (Mild, Verified 03/30/25 15:12) Rash chlorhexidine Allergy (Mild, Verified 03/30/25 15:12) Rash Iv Dye Allergy (Uncoded 12/28/24 10:32) stops breathing tramadol Adverse Reaction (Uncoded 12/28/24 10:32) Unknown HPI HPI Left hip inj w/ fluoro/ ativan: Details: Patient presents for scheduled procedure. Denies any recent cough, cold, infection, fever or other significant changes in medical history since last office visit. [facility] Medical History Knee pain Prediabetes Stress headaches Anxiety Depression Asthma Hypertension Sleep apnea with use of continuous positive airway pressure (CPAP) Morbid obesity Surgical History Obesity Hx of hysterectomy H/O bilateral breast reduction surgery Hx laparoscopic cholecystectomy S/P bilateral foot surgery Family History Father Lymphoma DM (diabetes mellitus) HTN (hypertension) Stroke Mother HTN (hypertension) DM (diabetes mellitus) Colon cancer Brother Heart attack Brother HTN (hypertension) Brother No problems noted. Brother No problems noted. Brother No problems noted. Sister No problems noted. Sister No problems noted. Daughter Obesity Daughter No problems noted. Other Knee pain Social History Alcohol intake: current Alcohol intake frequency: holidays/special occasions only Patient Tobacco Use Status: Current everyday Tobacco user Tobacco use type: Cigarette Cigarettes Per Day: 6 Substance Use Type: Marijuana Physical Exam Vital Signs: Last Vital Signs Pulse 82 07/24/25 13:27 Resp 16 05/24/25 12:39 BP 118/86 05/24/25 13:27 Pulse Ox 99 05/24/25 13:27 Oxygen Delivery Method Room Air 05/24/25 13:27 BMI result Body Mass Index 40.4 Office Procedures AMB Joint Injection/Aspiration Joint Injection/Aspiration Primary Site: other (Left hip) Prep: site was prepped using sterile technique Injected: 40 mg of, Kenalog, with 3 mL of (0.25% ropivacaine) and in the joint Approach Used: other (Lateral approach under fluoroscopy, no contrast injection) Procedure: The patient tolerated the procedure well Coding 17594 - Large joint Procedure code (CPT) selection complete Assessment & Plan Assessment & Plan (1) Left hip pain: Code(s): M25.552 - Pain in left hip Category: Medical Plan Patient is status post left intra-articular hip injection. Patient tolerated procedure well and was discharged home in stable condition with discharge instructions. All questions were answered. We will follow-up via telephone or in clinic to assess response to therapy. A follow-up appointment was made during today's visit. Orders: Orders FL guidance in treatment room 05/24/25 M25.552 - Pain in left hip Medications: New lorazepam (Ativan) Take 30 minutes prior to arrival to procedure 1 mg PO ONCE 1 tab 0RF anxiety Coding Level of Care Code Procedure Only Diagnoses Left hip pain M25.552 CPT Codes Coding - 23767 Large joint: 62853 - Large joint ([id number])
[2025-05-24 13:27] VITALS: BP 118/86; PULSE 82; O2SAT 99
== END 2025-05-24 13:25 | disposition home or self-care (01) ==
LOC: HO.PMCPRC 12:27
PROVIDERS: PCP Physician Assistant Medical; Visit Provider Internal Medicine
DX: M25.552 Pain in left hip (principal)
CPT/HCPCS: 20610; 77002

== ENCOUNTER 2025-06-28 10:24 | Outpatient (AMB) | payer MEDICARE, MEDICAID, SELFPAY ==
--- NOTE | 2025-06-28 10:29 | A.OFFVIS_ITS ---
Vital Signs 06/28/25 10:32 Height 5 ft 3 in Weight 181 lb 6 oz BMI 32.1 BP 159/87 H Blood Pressure Location Lt brachial Position Sitting Pulse 77 Pulse Source Pulse Oximeter Pulse Oximetry (%) 100 Oxygen Delivery Method Room Air Intake Visit Reasons: s/p left hip inj Intake Note: Pain today 02/08 Rubble Placer Required: No Accompanied by: Family/Other Allergies bee pollen Allergy (Severe, Verified 06/28/25 10:33) Anaphylaxis morphine Allergy (Severe, Verified 06/28/25 10:33) Anaphylaxis cefprozil (From Cefzil) Allergy (Mild, Verified 06/28/25 10:33) Rash chlorhexidine Allergy (Mild, Verified 06/28/25 10:33) Rash Iv Dye Allergy (Uncoded 12/28/24 10:32) stops breathing tramadol Adverse Reaction (Uncoded 12/28/24 10:32) Unknown HPI Comments Details: The patient is a 59-year-old female presenting with left hip pain. She received a left intra-articular hip steroid injection in May, which provided relief for about three to four weeks before the pain returned. The pain is primarily located on the left lateral hip and is rated as 4 out of 10 in severity. She reports no groin pain since injection. Her current pain is consistent with greater trochanter bursitis with significant localized pain and tenderness and inability to sleep on left side. Her lateral hip pain also increases with prolonged sitting or driving. She is interested in therapeutic GTB injection and also restart physical therapy to strengthen the muscles to alleviate joint pain and improve mobility. The patient has been losing weight and is currently on Mounjaro and has lost over 40 lbs since this March. She reports prediabetes, which has improved with weight loss and dietary changes. Denies any recent cough, cold, infection, fever or any significant changes in medical history since last office visit. Past procedures: 05/24/25: Left intra-articular hip steroid injection-100% groin pain relief; 60% hip pain relief, ongoing 02/22/25: Right Femoral Sprint removal-100% ongoing pain relief 12/28/24: Right Femoral Sprint PNS-70% ongoing pain relief 11/28/24: Right diagnostic femoral nerve block-100% pain relief for 1 week PRIOR: Patient is a pleasant 58-year-old female with prior history of chronic heel pain , bilateral TKA (right 2020, left 2019 [facility], Dr. Murdock), bilateral foot reconstruction, status post right ankle painful hardware removal on 07/08/24, prediabetes, depression, presents today for initial evaluation of right knee pain. She was referred to us by Dr. Olguin for potential interventional treatments for chronic right knee pain. Denies any recent trauma, injury, or falls. Patient reports sudden onset of right knee pain on the 3rd day postop during bending exercise by PT. Since then, she had multiple Orthopedic visits for right knee effusion drainage and imaging. More recently, she was seen by Dr. Olguin and underwent xray and whole bone scan which all were within normal limits, no signs of infection or hardware loosening. Right knee pain is localized to lateral and anterior aspects of the knee with aching, stabbing, and burning sensations with activities and rest. She has tried opioids which she did not tolerate well and had anaphylactic reaction with morphine, also tried pregabalin, Tylenol, NSAIDs, topical applications, heat and ice therapy, and completed formal course of PT and home exercise program. She also reports left knee pain due to over compensation after recent right ankle surgery. Reports previous cortisone injections raised her blood sugars significantly. Pain affects her daily activities and functioning, mood, sleep, mobility, social interactions and quality of life. 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 Reports mild benefit with duloxetine. Reports marijuana vape for sleep and pain with partial relief. Location: Bilateral knee, right worse than left Duration: Chronic pain for 2-3 years s/p right TKA Characteristics of symptom or complaint: Aching, stabbing, sharp, shooting, burning Aggravating or associated factors: Cold weather, movement, climbing stairs Relieving factors: Opioids (allergic), diclofenac gel, lidocaine, heat/cold, Tylenol, NSAIDs Treatment: [place] [employer] [place], right TKA 2020, left TKA 2018 at [facility] Dr. Murdock [facility] Medical History Knee pain Prediabetes Stress headaches Anxiety Depression Asthma Hypertension Sleep apnea with use of continuous positive airway pressure (CPAP) Morbid obesity Surgical History Obesity Hx of hysterectomy H/O bilateral breast reduction surgery Hx laparoscopic cholecystectomy S/P bilateral foot surgery Family History Father Lymphoma DM (diabetes mellitus) HTN (hypertension) Stroke Mother HTN (hypertension) DM (diabetes mellitus) Colon cancer Brother Heart attack Brother HTN (hypertension) Brother No problems noted. Brother No problems noted. Brother No problems noted. Sister No problems noted. Sister No problems noted. Daughter Obesity Daughter No problems noted. Other Knee pain Social History Alcohol intake: current Alcohol intake frequency: holidays/special occasions only Patient Tobacco Use Status: Current everyday Tobacco user Tobacco use type: Cigarette Cigarettes Per Day: 6 Substance Use Type: Marijuana Review of Systems Const All systems reviewed & are unremarkable except as noted in HPI and below Physical Exam Vital Signs: Last Vital Signs Pulse 77 06/28/25 10:32 BP 159/87 H 06/28/25 10:32 Pulse Ox 100 06/28/25 10:32 Oxygen Delivery Method Room Air 06/28/25 10:32 BMI result Body Mass Index 32.1 General: Appears afebrile. Alert and oriented. Mood and affect appropriate. Follows and participates in conversation appropriately. Respiratory effort is unlabored. No cough. Able to transition from sit to stand unassisted. Ambulates with bilaterally normal heel strike and toe off. Back/Spine/Pelvis Other: Demonstrates 5/5 right and 4/5 left strength of quadriceps bilaterally as well as flexion/dorsiflexion of bilateral feet against resistance. 2+ pedal pulses bilaterally. Straight leg rise with dorsiflexion negative bilaterally. Facet lo ading test positive bilaterally. Toshia sign positive on the left, limited Neo?s and Stinchfield tests are negative bilaterally. No groin pain with I/E hip rotations bilaterally. Moderate TTP to left GTB. Cervical Spine: cervical ROM normal and No Cervical spine tenderness Thoracic/Lumbar Spine: thoracic and lumbar spine normal to inspection, No Thoracic/lumbar spine scar(s), Lasegue's sign negative, straight leg raise negative bilaterally, thoraco-lumbar ROM limited, No thoracic spinal tenderness and No lumbar spinal tenderness Results Reviewed Results Reviewed: XR hip LT min 2V 06/03/25 Findings: Bony alignment is anatomic. No fracture. Mild degenerative change of the left hip joint. No erosions. Impression: Mild left hip DJD. Assessment & Plan Assessment & Plan (1) Left hip pain: Code(s): M25.552 - Pain in left hip Category: Medical (2) Greater trochanteric bursitis of left hip: Code(s): M70.62 - Trochanteric bursitis, left hip Category: Medical (3) Osteoarthritis of left hip: Code(s): M16.12 - Unilateral primary osteoarthritis, left hip Category: Medical Plan I discussed with the patient the effectiveness of the steroid injection for her left hip pain, noting that it provided temporary relief for hip but completely resolved groin pain. Will plan for left therapeutic GTB injection as next steps with local and fluoroscopy. Expectations, risks and benefits were reviewed. We talked about the importance of physical therapy to strengthen the hip muscles and potentially alleviate pain. Patient will continue with intermittent use of anti-inflammatory medications and the application of moist heat for managing bursitis. We also discussed her weight loss journey with Mounomaro and dietary changes and the importance of physical activity to prevent muscle loss. All questions and concerns have been answered and patient agreed with the treatment plan. Follow up as needed. Patient was informed and verbally consented to the use of an ambient scribe for clinic note documentation during this visit. Orders: Orders PT Evaluation and Treatment 06/28/25 M25.552 - Pain in left hip, M70.62 - Trochanteric bursitis, left hip Coding Level of Care Code Est Pt Level 4 (18631) Complex EM visit Add On G2211 Diagnoses Left hip pain M25.552 Greater trochanteric bursitis of left hip M70.62 Osteoarthritis of left hip M16.12
[2025-06-28 10:32] VITALS: BP 159/87; PULSE 77; O2SAT 100; BMI 32.1
--- OUTSIDE RECORDS SUMMARY | 2025-06-28 11:44 | XMS_ITS | Patient Health Record ---
Author Organization [facility] Address [address] [place] [address] Support Name Relationship Address Phone AllAlyssa Guarantor Unknown [phone] Allergies Allergen (clinical drug ingredient) Drug/Non Drug [...] Status Risk Notes Problem Vitamin D deficiency (85518251) Vitamin D deficiency, unspecified (E55.9) Active confirmed Problem Tobacco user (245579568) Nicotine dependence, cigarettes, uncomplicated (F17.210) Active confirmed Problem Anxiety disorder , unspecified (F41.9) Active confirmed Problem Insomnia (120370022) Insomnia, unspecified (G47.00) Active confirmed Problem Obstructive sleep apnea syndrome (70495795) Obstructive sleep apnea (adult) (pediatric) (G47.33) Active confirmed Problem Essential hypertension (83016161) Essential (primary) hypertension (I10) Active confirmed Problem Body mass index 40+ - severely obese (084622795) Body mass index (BMI) 40.0-44.9, adult (Z68.41) Active confirmed Plan Of Treatment Future Test Test Name Order Date TSH 04/19/2018 Vitamin D, 25-Hydroxy 04/19/2018 Lipid Panel 04/19/2018 CBC 04/19/2018 MICROALBUMIN,URINE 04/19/2018 COMPREHENSIVE METABOLIC PANEL 04/19/2018 BASIC METABOLIC PANEL 04/26/2018 Insurance Providers Payer Name Payer Address Payer Phone Subscriber Number Group Number Insured Name Patient Relationship to Insured Coverage Start Date Coverage End Date [facility] [address] [place] [phone] [id number] Alyssa Carrizales Self - patient is the insured Medical (General) History Surgical History Surgery Date(Month/Year) left knee surgery bilateral foot surgery torn meniscus Hospitalization History Reason Date(Month/Year)
--- OUTSIDE RECORDS SUMMARY | 2025-06-28 11:44 | XMS_ITS | Patient Health Record ---
Author Organization [facility] Address [address] [place] [address] Care Team Providers Care Industrial Safety Engineer Name Role Phone Pattie Mishra MD Primary Care Provider Андрей Morocho Unavailable [phone] Allergies Allergen (clinical drug ingredient) Drug/Non Drug [...] Note-Appointment . . . Pt had a [facility] appointment today; Duration: . 07/06/2018 Active PARoxetine [...] Insured Coverage Start Date Coverage End Date [facility] [address] [facility] [place] [id number] Alyssa Carrizales Self - patient is the insured Medical (General) History Medical History History ICD Code Anxiety disorder asthma Knee Pain Hypertension Joint implants/screws Depression Surgical History Surgery Date(Month/Year) ankle reconstruction 06/2016, 06/2017 knee surgery 04/2018 hysterectomy 2006 tubal ligation 1996 knee surgery, left 04/2018
== END 2025-06-28 11:09 | disposition home or self-care (01) ==
LOC: HO.PMC 10:25
PROVIDERS: PCP Physician Assistant Medical; Visit Provider Nurse Practitioner Family
DX: M25.552 Pain in left hip (principal); M70.62 Trochanteric bursitis, left hip; M16.12 Unilateral primary osteoarthritis, left hip
CPT/HCPCS: 99214; G2211

== ENCOUNTER → 2025-06-28 10:24 | Outpatient (BNVA) | payer OTHER, MEDICARE, MEDICAID, SELFPAY | PROVIDERS: PCP Physician Assistant Medical; Visit Provider Nurse Practitioner Family | DX: M25.552 Pain in left hip (principal); M70.62 Trochanteric bursitis, left hip; M16.12 Unilateral primary osteoarthritis, left hip | CPT/HCPCS: 99212 ==

== ENCOUNTER 2025-09-10 10:19 | Outpatient (REF) | payer MEDICARE, MEDICAID, SELFPAY ==
[2025-09-10 10:48] LABS: Hematocrit 39.9 % (37.0-47.0); Hemoglobin 13.1 g/dl (12.0-16.0); Mean Corpuscular HGB Conc 32.8 g/dl (31.0-35.0); Mean Corpuscular Hemoglobin 27.9 pg (27.0-33.0); Mean Corpuscular Volume 85.1 fL (80.0-98.0); NRBC Abs Auto 0.000 X10*3/uL (0.0-0.012); NRBC Pct Auto 0.0 /100WBC (0.0-0.2); Platelet Count 219 X10*3/uL (160-400); Red Blood Count 4.69 X10*6/uL (4.20-5.50); White Blood Count 9.3 X10*3/uL (4.8-10.8)
[2025-09-10 12:11] LABS: Alanine Aminotransferase 21 U/L (0-31); Albumin Level 4.2 g/dL (3.5-5.0); Alkaline Phosphatase 118 U/L (39-117); Anion Gap 12 (12-20); Aspartate Amino Transferase 22 U/L (5-31); Blood Urea Nitrogen 13 mg/dL (9-16); Calcium 9.4 mg/dL (8.4-10.2); Carbon Dioxide 26 mmol/L (22-29); Chloride 108 mmol/L (96-108); Cholesterol 106 mg/dL (<200); Estimated Glomerular Filt Rate > 60; HDL Cholesterol 33 mg/dL (>40); Iron 73 mcg/dL (30-160); Percent Iron Saturation 33 % (15-50); Potassium 3.2 mmol/L (3.3-5.1); Sodium 143 mmol/L (135-145); Total Iron Binding Capacity 222 mcg/dL (228-428); Total Protein 7.1 g/dL (6.5-8.0); Triglycerides 91 mg/dL (<150); Unsaturated Iron Binding 149 ug/dL
[2025-09-10 12:12] LABS: Folate 5.2 ng/mL (> or = 4.0); Vitamin B12 216 pg/mL (200-900)
[2025-09-10 12:22] LABS: Ferritin 352 ng/mL (10-250)
[2025-09-10 13:14] LABS: Free T4 (Free Thyroxine) 0.95 ng/dL (0.71-1.85)
== END 2025-09-10 10:20 | disposition home or self-care (01) ==
LOC: HO.10HDL 10:19
PROVIDERS: Visit Provider Physician Assistant Medical
DX: Z01.818 Encounter for other preprocedural examination (principal); Z00.00 Encounter for general adult medical examination without abnormal findings; F32.9 Major depressive disorder, single episode, unspecified; E11.9 Type 2 diabetes mellitus without complications; E78.5 Hyperlipidemia, unspecified; F41.9 Anxiety disorder, unspecified; I10 Essential (primary) hypertension; R53.83 Other fatigue
CPT/HCPCS: 36415; 80053; 80061; 82306; 82607; 82728; 82746; 83036; 83540; 84439; 84443; 85027

== ENCOUNTER 2025-10-22 11:59 | Outpatient (REF) | payer MEDICARE, MEDICAID, SELFPAY ==
[2025-10-22 13:39] LABS: Potassium 3.6 mmol/L (3.3-5.1)
[2025-10-22 15:16] LABS: Free T4 (Free Thyroxine) 1.03 ng/dL (0.71-1.85)
--- OUTSIDE RECORDS SUMMARY | 2025-10-22 15:17 | XMS_ITS | Patient Health Record ---
Author Organization [facility] Address [address] [place] [address] Support Name Relationship Address Phone AllAlyssa Guarantor Unknown [phone] Allergies Allergen (clinical drug ingredient) Drug/Non Drug [...] Status Risk Notes Problem Vitamin D deficiency (78933205) Vitamin D deficiency, unspecified (E55.9) Active confirmed Problem Tobacco user (336322992) Nicotine dependence, cigarettes, uncomplicated (F17.210) Active confirmed Problem Anxiety disorder (953780402) Anxiety disorder, unspecified (F41.9) Active confirmed Problem Insomnia (545643969) Insomnia, unspecified (G47.00) Active confirmed Problem Obstructive sleep apnea syndrome (12389124) Obstructive sleep apnea (adult) (pediatric) (G47.33) Active confirmed Problem Essential hypertension (54807747) Essential (primary) hypertension (I10) Active confirmed Problem Body mass index 40+ - severely obese (766617842) Body mass index (BMI) 40.0-44.9, adult (Z68.41) [...] Coverage Start Date Coverage End Date [facility] [address] [place] [address] [id number] Alyssa Carrizales Self - patient is the insured Medical (General) History Surgical History Surgery Date(Month/Year) left knee surgery bilateral foot surgery torn meniscus Hospitalization History Reason Date(Month/Year)
--- OUTSIDE RECORDS SUMMARY | 2025-10-22 15:17 | XMS_ITS | Patient Health Record ---
Author Organization [facility] Address [address] [place] [address] Care Team Providers Care Film Developing Machine Operator Name Role Phone Pattie Mishra MD Primary Care Provider Андрей Morocho Unavailable [phone] Allergies Allergen (clinical drug ingredient) Drug/Non Drug [...] Note-Appointment . . . [facility]; Duration: . 07/06/2018 Active PARoxetine [...] Insured Coverage Start Date Coverage End Date [facility] [address] [facility] [place] [id number] Alyssa Carrizales Self - patient is the insured Medical (General) History Medical History History ICD Code Anxiety disorder asthma Knee Pain Hypertension Joint implants/screws Depression Surgical History Surgery Date(Month/Year) ankle reconstruction 06/2016, 06/2017 knee surgery 04/2018 hysterectomy 2006 tubal ligation 1996 knee surgery, left 04/2018
== END 2025-10-22 12:00 | disposition home or self-care (01) ==
LOC: HO.10HDL 11:59
PROVIDERS: Visit Provider Physician Assistant Medical
DX: R79.89 Other specified abnormal findings of blood chemistry (principal); E87.6 Hypokalemia; Z13.29 Encounter for screening for other suspected endocrine disorder
CPT/HCPCS: 36415; 84132; 84439; 84443